=== PATIENT | female | born 1950 | race Caucasian/White ===

== ENCOUNTER 2017-10-16 12:53 | Inpatient (IN) | payer OTHER ==
[~2017-10-16] VITALS: Ht 160 cm; Wt 67.1 kg
--- NOTE | 2017-10-16 13:15 | ED GENERAL ADULT ---
History of Present Illness General Chief Complaint: Dyspnea (COPD, CHF, Other) Stated Complaint: SOB Vital Signs & Intake/Output Vital Signs & Intake/Output Vital Signs Date Time Temp Pulse Resp B/P B/P Pulse O2 O2 Flow FiO2 Mean Ox Delivery Rate 10/16 1258 98.7 84 20 124/78 92 Room Air Allergies Coded Allergies: No Known Allergies (10/16/17) Triage Note: PT TO ED C/O CHEST COLD SINCE FRIDAY. STATES PRODUCTIVE COUGH AND SOB. RA SATS 92%. NO OBVIOUS RESP DISTRESS NOTED. DENIES C/P. TO EKG [place]. Past History Travel History Traveled to [place] past 21 day No Medical History Cardiovascular: hyperlipidemia Endocrine: hypothyroidism Psychosocial History What is your primary language Beninese Tobacco Use: Current Daily Use Daily Tobacco Use Amount/Type: => 5 Cigarettes daily ETOH Use: denies use Illicit Drug Use: denies illicit drug use Progress Plan of Care: Orders Procedure Date/time Status EKG 10/16 1258 Active Departure Departure Condition: Stable Referrals: Candelaria ANGELES,Raghavendra Tang III (PCP/Family) Departure Forms: Customer Survey General Discharge Information
--- NOTE | 2017-10-16 13:20 | ED DYSPNEA/ASTHMA COMPLAINT ---
History of Present Illness General Chief Complaint: Dyspnea (COPD, CHF, Other) Stated Complaint: SOB Source: patient, family Exam Limitations: no limitations Vital Signs & Intake/Output Vital Signs & Intake/Output Vital Signs Date Time Temp Pulse Resp B/P B/P Pulse O2 O2 Flow FiO2 Mean Ox Delivery Rate 10/16 1339 92 10/16 1258 98.7 84 20 124/78 92 Room Air Allergies Coded Allergies: No Known Allergies (10/16/17) Reconcile Medications Atorvastatin Calcium 20 MG TABLET 1 TAB PO DAILY CHOLESTEROL (Reported) Hydrocodone/Acetaminophen (Hydrocodon-Acetaminoph 7.5-325) 7.5 MG-325 MG TABLET 1 TAB PO 4XDP PAIN (Reported) Levothyroxine Sodium 100 MCG TABLET 1 TAB PO DAILY AC THYROID (Reported) Mirtazapine 15 MG TABLET 1 TAB PO QPM SLEEP (Reported) Triage Note: PT TO ED C/O CHEST COLD SINCE FRIDAY. STATES PRODUCTIVE COUGH AND SOB. RA SATS 92%. NO OBVIOUS RESP DISTRESS NOTED. DENIES C/P. TO EKG [place]. Triage Nurses Notes Reviewed? yes HPI: Patient presents to the emergency department with increasing shortness of breath , dyspnea on exertion and a nonproductive cough. Patient states that on Friday she had chest tightness but has not had any since then. Patient is a heavy smoker but she states that she has been really decreasing the amount of cigarettes that she has been taking since Friday. There are no fevers but positive chills. Positive anorexia. No nausea or vomiting. Patient denies any orthopnea. Her daughter became concerned because it sounded like at times last night she stopped breathing during the night. 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 Past History Travel History Traveled to [place] past 21 day No Medical History Any Pertinent Medical History? see below for history Cardiovascular: hyperlipidemia Endocrine: hypothyroidism Surgical History Surgical History: non-contributory Psychosocial History What is your primary language Armenian Tobacco Use: Current Daily Use Daily Tobacco Use Amount/Type: => 5 Cigarettes daily ETOH Use: denies use Illicit Drug Use: denies illicit drug use Family History Hx Contributory? No Review of Systems Review of Systems Constitutional: Reports: no symptoms. EENTM: Reports: no symptoms. Respiratory: Reports: see HPI, cough, short of breath, wheezing. Cardiovascular: Reports: see HPI, chest pain. GI: Reports: no symptoms. Genitourinary: Reports: no symptoms. Musculoskeletal: Reports: no symptoms. Skin: Reports: no symptoms. Neurological/Psychological: Reports: no symptoms. Hematologic/Endocrine: Reports: no symptoms. Immunologic/Allergic: Reports: no symptoms. All Other Systems: Reviewed and Negative Physical Exam Physical Exam General Appearance: well developed/nourished, alert, awake, mild distress Head: atraumatic, normal appearance Eyes: Bilateral: PERRL, EOMI. Ears, Nose, Throat: normal pharynx, normal ENT inspection, hearing grossly normal Neck: normal inspection, supple, full range of motion Respiratory: decreased breath sounds, respiratory distress Cardiovascular: regular rate/rhythm, normal peripheral pulses Gastrointestinal: normal bowel sounds, soft, non-tender, no organomegaly Extremities: normal inspection, normal capillary refill, normal range of motion, no edema Neurologic/Psych: no motor/sensory deficits, awake, alert, oriented x 3, normal gait, normal mood/affect Skin: intact, normal color, warm/dry Lymphatic: no anterior cervical brian Core Measures ACS in differential dx? Yes CVA/TIA Diagnosis No Sepsis Present: No Sepsis Focused Exam Completed? No Progress Differential Diagnosis: asthma, AMI, bronchitis, CHF, COPD, pulmonary embolism, pneumonia, pneumothorax Plan of Care: Orders Procedure Date/time Status Heart Healthy Diet 10/16 D Active ED Holding Orders 10/16 1511 Active Admit to inpatient 10/16 1511 Active Vital Signs 10/16 1511 Active Code Status 10/16 1511 Active BLOOD CULTURE 10/16 1450 Active Telemetry/Supervisor Sandblaster 10/16 1321 Active URINALYSIS 10/16 1321 Active TROPONIN LEVEL 10/16 1321 Complete PARTIAL THROMBOPLASTIN TIME 10/16 1321 Complete PROTHROMBIN TIME 10/16 1321 Complete D-DIMER 10/16 1321 Complete COMPREHENSIVE METABOLIC PANEL 10/16 1321 Complete CBC WITHOUT DIFFERENTIAL 10/16 1321 Complete EKG 10/16 1258 Active Current Medications Sig/Rosaura Start time Last Medication Dose Stop Time Status Admin Azithromycin 500 MG ONCE ONE 10/16 1445 AC 10/16 (Zithromax) 10/16 1544 1507 Dextrose/Water 250 ML (D5W) Laboratory Tests 10/16/17 1335: Anion Gap 15, Estimated GFR 56 L, BUN/Creatinine Ratio 15.0, Glucose 136 H, Calcium 9.9, Total Bilirubin 0.6, AST 27, ALT 30, Alkaline Phosphatase 137 H, Troponin I < 0.01, Total Protein 7.1, Albumin 3.7, Globulin 3.4, Albumin/ Globulin Ratio 1.1, PT 12.5, INR 1.15, APTT 30, D-Dimer High Sensitivty 238, CBC w Diff NO MAN DIFF REQ, RBC 4.27, MCV 91.7, MCH 30.4, MCHC 33.1, RDW 13.5, MPV 7.3 L, Gran % 64.9, Lymphocytes % 23.6, Monocytes % 10.8 H, Eosinophils % 0.5, Basophils % 0.2, Absolute Granulocytes 7.5 H, Absolute Lymphocytes 2.7, Absolute Monocytes 1.3 H, Absolute Eosinophils 0.1, Absolute Basophils 0 Microbiology 10/16 1500 BLOOD: Blood Culture - RECD 10/16 1450 BLOOD: Blood Culture - RECD Diagnostic Imaging: Viewed by Me: Radiology Read. Discussed w/RAD: Radiology Read. CXR Impression: PATIENT: KEVYN GARCIA PRESENT AGE: 66 PATIENT ACCOUNT NO: [id number] : 51 LOCATION: [facility] ORDERING PHYSICIAN: Usman Romero MD SERVICE DATE: 10/16/17-1320 EXAM TYPE: RAD - XRY- PORTABLE CHEST XRAY EXAMINATION: XR PORTABLE CHEST CLINICAL INFORMATION: Shortness of breath. COMPARISON: None TECHNIQUE: Portable frontal view of the chest was obtained. FINDINGS: The trachea is in normal anatomic position. The cardiac silhouette is normal in size. Calcification of the aorta. There are hazy bibasilar opacities. Aspiration cannot be excluded. No pneumothorax. No large pleural effusion. IMPRESSION: Bibasilar airspace opacities. Aspiration is not excluded. DICTATED BY: Bhupendra Tinsley MD DATE/TIME DICTATED:10/16/171422 PHARMACY INTAKE TECHNICIAN:SWATI DATE/TIME TRANSCRIBED:10/16/171422 CONFIDENTIAL, DO NOT COPY WITHOUT APPROPRIATE AUTHORIZATION. <Electronically signed in Other Vendor System> SIGNED BY: Bhupendra Tinsley MD 10/16/17 1724 Initial ED EKG: SR WITH DIFFUSE ST DEPRESSIONS Rhythm Strip: normal sinus rhythm Comments: D/W DR. BUTLER. HE WILL CONSULT Departure Departure Disposition: HOME OR SELF CARE Condition: Stable Clinical Impression Primary Impression: Pneumonia Secondary Impressions: Abnormal EKG Referrals: Raghavendra Gaona MD, III (PCP/Family) Departure Forms: Customer Survey General Discharge Information Admission Note Spoke With: Jaylen ANGELES,Ashley Documentation of Exam: Documentation of any treatments & extenuating circumstances including Concerns Regarding Discharge (functional status, medication knowledge or non-compliance, living conditions, etc.) that warrant an admission rather than observation: [IV ABX, RESP TREATMENT, CARDIOLOGY CONSULT, TELE MONITORING, SERIAL ENZYMES] Critical Care Note Critical Care Note Critical Care Time: mins: (90 MIN)
[2017-10-16] MEDS ORDERED: MIRTAZAPINE15 M2 PO (13:27)
[2017-10-16] MEDS ORDERED: ATORVASTATIN CA20 M1 PO (13:27)
[2017-10-16] MEDS ORDERED: LEVOTHYROXINE100 MC1 PO (13:27)
[2017-10-16] MEDS ORDERED: HYDROCODON-ACE1 EAC3 PO (13:29)
[2017-10-16 13:49] LABS: ABSOLUTE BASOPHIL COUNT 0 /CUMM (0.0-0.2); ABSOLUTE EOSINOPHIL COUNT 0.1 /CUMM (0.0-0.7); ABSOLUTE GRANULOCYTE CT 7.5 /CUMM (1.4-6.5); ABSOLUTE LYMPH COUNT 2.7 /CUMM (1.2-3.4); ABSOLUTE MONOCYTE COUNT 1.3 /CUMM (0.10-0.60); BASOPHIL % 0.2 % (0.0-2.0); EOSINOPHIL % 0.5 % (0-5); GRANULOCYTE % 64.9 % (42.2-75.2); HEMATOCRIT 39.1 % (37-47); MEAN CORPUSCULAR HGB 30.4 PG (27.0-31.0); MEAN CORPUSCULAR HGB CONC 33.1 G/DL (33.0-37.0); MEAN CORPUSCULAR VOLUME 91.7 FL (81.0-99.0); MEAN PLATELET VOLUME 7.3 FL (7.4-10.4); PLATELET COUNT 357 /CUMM (130-400); RBC DISTRIBUTION WIDTH 13.5 % (11.5-14.5); RED BLOOD CELL CT 4.27 /CUMM (4.20-5.40); WHITE BLOOD CELL COUNT 11.6 /CUMM (4.8-10.8)
[2017-10-16 13:57] LABS: PT 12.5 SEC (9.4-12.5); PTT 30 SEC (25-37)
--- NOTE | 2017-10-16 14:28 | RADIOLOGY REPORT ---
EXAMINATION: XR PORTABLE CHEST CLINICAL INFORMATION: Shortness of breath. COMPARISON: None TECHNIQUE: Portable frontal view of the chest was obtained. FINDINGS: The trachea is in normal anatomic position. The cardiac silhouette is normal in size. Calcification of the aorta. There are hazy bibasilar opacities. Aspiration cannot be excluded. No pneumothorax. No large pleural effusion. IMPRESSION: Bibasilar airspace opacities. Aspiration is not excluded.
--- NOTE | 2017-10-16 15:41 | History & Physical ---
Toma Muniz 10/16/17 1541: General Information and HPI MD Statement: I have seen and personally examined KEVYN GARCIA and documented this H&P. The patient is a 66 year old F who presented with a patient stated chief complaint of [Chest pain]. Source of Information: patient, old records Exam Limitations: no limitations History of Present Illness: Ms. Garcia is a 66-year-old female with PMH of dyslipidemia, hypothyroidism, anxiety on rameron, degenerative disc disease w/ pinched nerve on vicodin, presented to ER with chief complaint of increasing shortness of breath especially during exertion, nonproductive cough, and one episode of chest tightness on Friday, with normal episodes ever since. Patient stated that she got a cold on Friday, was alternating feeling of hot/ cold, but she never got a temperature taken, and endorsed sore throat/ nonproductive cough. Patient had a hard time bringing up her sputum, and endorsed chest pain from coughing, however self resolved when not coughing. She said the chest pain was not reproducible during exertion, and no chest pain since Friday. Patient's daughter stated that patient walk to the bathroom is now prior to our interaction, and felt dizzy. At baseline patient could ambulate without assistance. Patient was seen by PCP Dr. Gaona in [place], and had never seen any other specialists. Patient had been active smoker for 40 years, was 1.5 ppd, however she had not been smoking since Friday due to the cough. Patient had a stress test 15 years ago, was grossly normal results other than "sticky valves". Daughter stated that patient had been tired for years, and had been coughing at nighttime, however she was getting used to it. Patient denied leg swelling. Patient stated that she was sleeping with head elevated for decades however just for the convenience of watching TV. She had no past echo. Allergies/Medications Allergies: Coded Allergies: No Known Allergies (10/16/17) Home Med list Atorvastatin Calcium 20 MG TABLET 1 TAB PO DAILY CHOLESTEROL (Reported) Hydrocodone/Acetaminophen (Hydrocodon-Acetaminoph 7.5-325) 7.5 MG-325 MG TABLET 1 TAB PO 4XDP PAIN (Reported) Levothyroxine Sodium 100 MCG TABLET 1 TAB PO DAILY AC THYROID (Reported) Mirtazapine 15 MG TABLET 1 TAB PO QPM SLEEP (Reported) Past History Travel History Traveled to [place] past 21 day No Medical History Cardiovascular: hyperlipidemia Musculoskeletal: Degenerative Disc Disease w/ Nerve impingement. Psychiatric: anxiety Endocrine: hypothyroidism Surgical History Surgical History: non-contributory Past Family/Social History Psychosocial History Smoking Status: Current Everyday Smoker (>5cig daily) ETOH Use: denies use Illicit Drug Use: denies illicit drug use Review of Systems Review of Systems Constitutional: Reports: see HPI. Exam & Diagnostic Data Last 24 Hrs of Vital Signs/I&O Vital Signs Date Time Temp Pulse Resp B/P B/P Pulse O2 O2 Flow FiO2 Mean Ox Delivery Rate 10/16 1339 92 10/16 1258 98.7 84 20 124/78 92 Room Air Intake & Output 10/16 1600 10/16 0800 10/16 0000 Intake Total 0 Output Total Balance 0 Intake, Oral 0 Patient 61.235 kg Weight Weight Estimated Measurement Method Physical Exam General Appearance Alert, Oriented X3, Cooperative, No Acute Distress Skin No Rashes, No Breakdown, No Significant Lesion Skin Temp/Moisture Exam: Warm/Dry Sepsis Skin Exam (color): Normal for Ethnicity HEENT Atraumatic, PERRLA Neck Supple, No JVD Cardiovascular Regular Rate Lungs very mild expiratory wheezing in mid lung, s/p TRC/Nebulizer Abdomen Soft, No Tenderness, No Hepatospenomegaly Neurological Normal Speech, Strength at 5/5 X4 Ext Extremities No Edema, Normal Pulses, No Tenderness/Swelling Last 24 Hrs of Labs/Jesus Alberto: Laboratory Tests 10/16/17 1335: Anion Gap 15, Estimated GFR 56 L, BUN/Creatinine Ratio 15.0, Glucose 136 H, Calcium 9.9, Total Bilirubin 0.6, AST 27, ALT 30, Alkaline Phosphatase 137 H, Troponin I < 0.01, Total Protein 7.1, Albumin 3.7, Globulin 3.4, Albumin/ Globulin Ratio 1.1, PT 12.5, INR 1.15, APTT 30, D-Dimer High Sensitivty 238, CBC w Diff NO MAN DIFF REQ, RBC 4.27, MCV 91.7, MCH 30.4, MCHC 33.1, RDW 13.5, MPV 7.3 L, Gran % 64.9, Lymphocytes % 23.6, Monocytes % 10.8 H, Eosinophils % 0.5, Basophils % 0.2, Absolute Granulocytes 7.5 H, Absolute Lymphocytes 2.7, Absolute Monocytes 1.3 H, Absolute Eosinophils 0.1, Absolute Basophils 0 Microbiology 10/16 1500 BLOOD: Blood Culture - RECD 10/16 1450 BLOOD: Blood Culture - RECD Assessment/Plan Assessment: Ms. Garcia is a 66-year-old female with PMH of dyslipidemia, hypothyroidism, anxiety on rameron, degenerative disc disease w/ pinched nerve on vicodin, presented to ER with chief complaint of increasing shortness of breath especially during exertion, nonproductive cough, and one episode of chest tightness on Friday, with normal episodes ever since. Patient stated that she got a cold on Friday, was alternating feeling of hot/ cold, but she never got a temperature taken, and endorsed sore throat/ nonproductive cough. Patient had a hard time bringing up her sputum, and endorsed chest pain from coughing, however self resolved when not coughing. She said the chest pain was not reproducible during exertion, and no chest pain since Friday. Patient's daughter stated that patient walk to the bathroom is now prior to our interaction, and felt dizzy. At baseline patient could ambulate without assistance. On admission, Vitals: Stable saturating 92% on room air -CBC: WBC 9.6, H/H 15.0/39.1, PLT 357, -BMP: K3.3, CR 1.0, alk phos 137, -Misc: -CXR: Bibasilar airspace opacities. Aspiration is not excluded. -EKG: Sinus rhythm with diffuse ST depressions. Dr. Guerrero where it, with consult. -Interventions in ER: Ceftriaxone/azithromycin 1, Atrovent/Proventil Assessment: Patient's clinical picture with chest discomfort associated with coughing, however self resolving, may represented more of musculoskeletal chest pain, however pneumonia cannot be ruled out as well based on her chest x-ray. However , cardiac workup would still be needed to rule out any possible acute coronary syndrome/CHF, etc. Problem list #COPD #ACS pending rule out #Hypokalemia Plan - Admit to telemetry for continuous monitoring anticoagulation DVT prophylaxis Heparin + ALPS Heart healthy Diet Full Code As Ranked By This Provider Problem List: 1. Abnormal EKG 2. Hyperlipidemia Core Measures/Misc (04/06) Acute Coronary Syndrome ACS Diagnosis: No Congestive Heart Failure Congestive Heart Failure Diagnosis No Cerebrovascular Accident CVA/TIA Diagnosis: No VTE (View Protocol) VTE Risk Factors Age>40 No Mechanical VTE Prophylaxis d/t N/A MechProphylax Ordered No VTE Pharm Prophylaxis d/t NA PharmProphylax ordered Sepsis (View protocol) Sepsis Present: No Ashley York MD 10/16/17 1808: Attending MD Review Statement Attending Statement Attending MD Statement: examined this patient, discuss w/resident/PA/[facility], agreed w/resident/PA/[facility], discussed with family, reviewed EMR data (avail), reviewed images, amended to note Attending Assessment/Plan: 66-year-old female with past medical history significant for dyslipidemia, hypothyroidism, anxiety on rameron, degenerative disc disease presented to the emergency room with shortness of breath, coughing, wheezing and some chest discomfort that she experienced 4 days ago. Patient is a chronic smoker. She sick with cough, chest congestion and cold, sore throat symptoms since last 5 days. She denies any sputum production. She does complain of feeling short of breath. She claims that she use the lowest sleepy but that habit. She denies any exertional chest pain. That chest discomfort mainly occurred with the cough and it was mainly in the center of the chest as well as back. She denies checking her temperature but has felt chills. She has not taken any medications. In the emergency room she was wheezy and her chest x-ray showed bibasilar opacities. She had abnormal EKG also. She is a chronic smoker but has never been diagnosed with COPD before. Vital Signs Date Time Temp Pulse Resp B/P B/P Pulse O2 O2 Flow FiO2 Mean Ox Delivery Rate 10/16 1757 74 18 133/64 93 Room Air 10/16 1500 98.6 80 18 124/66 93 Room Air 10/16 1339 92 10/16 1258 98.7 84 20 124/78 92 Room Air on exam; aox3, nad. cv; s1,s2, rrr resp; b/l exp wheeze and junky bs. abd; soft, nt, bs+ ext; no edema Laboratory Tests 10/16 10/16 1625 1335 Chemistry Sodium (137 - 145 mmol/L) 141 Potassium (3.5 - 5.1 mmol/L) 3.3 L Chloride (98 - 107 mmol/L) 102 Carbon Dioxide (22 - 30 mmol/L) 25 Anion Gap (5 - 16) 15 BUN (7 - 17 mg/dL) 15 Creatinine (0.5 - 1.0 mg/dL) 1.0 Estimated GFR (>60 ml/min) 56 L BUN/Creatinine Ratio (7 - 25 %) 15.0 Glucose (65 - 99 mg/dL) 136 H Calcium (8.4 - 10.2 mg/dL) 9.9 Total Bilirubin (0.2 - 1.3 mg/dL) 0.6 AST (14 - 36 U/L) 27 ALT (9 - 52 U/L) 30 Alkaline Phosphatase (<127 U/L) 137 H Troponin I (< 0.11 ng/ml) < 0.01 Total Protein (6.3 - 8.2 g/dL) 7.1 Albumin (3.5 - 5.0 g/dL) 3.7 Globulin (1.9 - 4.2 gm/dL) 3.4 Albumin/Globulin Ratio (1.1 - 2.2 %) 1.1 Coagulation PT (9.4 - 12.5 SEC) 12.5 INR (0.90 - 1.19) 1.15 APTT (25 - 37 SEC) 30 D-Dimer High Sensitivty (0 - 243 ng/ml) 238 Hematology CBC w Diff NO MAN DIFF REQ WBC (4.8 - 10.8 /CUMM) 11.6 H RBC (4.20 - 5.40 /CUMM) 4.27 Hgb (12.0 - 16.0 G/DL) 13.0 Hct (37 - 47 %) 39.1 MCV (81.0 - 99.0 FL) 91.7 MCH (27.0 - 31.0 PG) 30.4 MCHC (33.0 - 37.0 G/DL) 33.1 RDW (11.5 - 14.5 %) 13.5 Plt Count (130 - 400 /CUMM) 357 MPV (7.4 - 10.4 FL) 7.3 L Gran % (42.2 - 75.2 %) 64.9 Lymphocytes % (20.5 - 51.1 %) 23.6 Monocytes % (1.7 - 9.3 %) 10.8 H Eosinophils % (0 - 5 %) 0.5 Basophils % (0.0 - 2.0 %) 0.2 Absolute Granulocytes (1.4 - 6.5 /CUMM) 7.5 H Absolute Lymphocytes (1.2 - 3.4 /CUMM) 2.7 Absolute Monocytes (0.10 - 0.60 /CUMM) 1.3 H Absolute Eosinophils (0.0 - 0.7 /CUMM) 0.1 Absolute Basophils (0.0 - 0.2 /CUMM) 0 Urines Urine Color (YEL,AMB,STR) YEL Urine Clarity (CLEAR) CLEAR Urine pH (5.0 - 8.0) 6.0 Ur Specific [place] (1.001 - 1.035) 1.015 Urine Protein (NEG,<30 MG/DL) TRACE H Urine Ketones (NEG) NEG Urine Nitrite (NEG) NEG Urine Bilirubin (NEG) NEG Urine Urobilinogen (0.1 - 1.0 EU/dl) 0.2 Ur Leukocyte Esterase (NEG) NEG Ur Microscopic SEDIMENT EXAMINED Urine RBC (0 - 5 /HPF) 1-3 Urine WBC (0 - 2 /HPF) RARE Ur Epithelial Cells (NONE,FEW) FEW Urine Bacteria (NEG/NONE) RARE H Urine Mucus (FEW,NONE) RARE Urine Hemoglobin (NEG) SMALL H Urine Glucose (N MG/DL) NEG EKG: NSr with some ST depresions in multiple leads. CXR: Bibasilar airspace opacities. A/P; 66-year-old female with past medical history significant for dyslipidemia, hypothyroidism, anxiety on rameron, degenerative disc disease is admitted with shortness of breath, acute bronchitis, some chest discomfort 5 days ago and abnormal EKG. Patient admitted to telemetry. Troponins will be trended. Serial EKGs will be obtained. Appreciate cardiology input. She will be continued on aspirin. Please obtain echocardiogram. If her troponins become positive, please call cardiology for further recommendations. At this point Dr. Guerrero recommends no anticoagulation. She should be treated with IV steroids, TRC nebs and antibiotics . Please obtain sputum culture. Please send urine Legionella and strep antigen. Please also obtain a flu swab. Please continue statin and other home meds. Pharmacologic DVT prophylaxis. Patient is a full code. Discussed with daughter at bedside. Monalisa Rodriguez 10/16/17 1850: Resident Review Statement Resident Statement: examined this patient, discussed with dental intern, agreed with dental intern, reviewed images, amended to note Other Findings: Mr Garcia is a 66 year old man w/ a PMHx of hyperlipidemia, 40 pk year smoking history, hypothyroidism came to the hospital with a chief concern of acute onset of dyspnea, productive cough, subjective fever, sore throat that started approximately 4 days ago. She was known to be in her usual state of health until 4 days ago, when she started developing worsening cough productive cough, associated with chest tightness only with paroxysms of cough. Reported chronic cough secondary to smoking, for many years. Also developed worsening dyspnea in the last 2 days, who appeared to be dyspneic on minimal exertion. No exertional chest pain reported. When she was in the ED, she reported an episode of dizziness upon ambulation. No palpitations, lightheadednes in the past, weight loss or weight gain, pedal edema, loss of appetite was noted. Reported occasional wheezing in the last few days. Has not seen any ticket collector for any pulmonary function tests. Reported stress test 17 years ago, when she had abnormal EKG changes. Has not seen any nursing director or followed up with further workup. Family history significant for coronary artery disease in father at 57. Works at a [employer], and reports a busy lifestyle. Active at baseline. At the time of [id number] 98.7, pulse rate 84, respiration 20, blood pressure 124/78, pulse ox 92% on room air. General Exam: AAOx3, mild distress, Skin: No rashes, no breakdown HEENT: PERRLA, EOMI Neck: Supple, No JVD No cervical lymphadenopathy CVS: Reg Rate, Normal S1,S2, No MGR Resp: Decreased air entry bilaterally, rhonchi and rales + bilaterally. Abdomen: Soft, No tenderness, Normal Bowel Sounds Neuro: Normal Speech, Strength 5/5 b/l x 4 extremities, Sensation intact, CN III -XII NL, Reflexes 2+ Extremities: No cyanosis, pedal edema Pertinent lab findings: W BC 11.6, hemoglobin 13.0,Pertinent lab findings: WBC 11.6, hemoglobin 13.0, hematocrit 39.1, platelets 357, sodium 141, potassium 3.3 , bicarb 25, glucose 136, AST 27, ALT 30, alkaline phosphatase 137, troponin I 0.01 d-dimer 238. EKG reveals normal sinus rhythm, normal axis, HI 152, T-wave inversions in V2-V3 , flattened T waves V4-V6. [address] segment depressions in lead 2, V3, V4, V5. Could be nonspecific repolarization abnormalities given the nature of diffuse changes in all leads. Chest x-ray revealed bibasilar airspace opacities. Etiology in this case for airflow obstruction is likely secondary to emphysema/ chronic bronchitis. But no PFTs were done in the past. Radiologically, it does appear that she may have had COPD for a long time. mMRC dyspnea scale 1, but cant calculate her GOLD status given lack of data. Etiology for acute exacerbation is likely viral infection/bacterial infection w/ Haemophilus, Moraxella, Streptococcus. Differential diagnosis considered at the time of admission pneumonia, restrictive lung disease or acute coronary syndrome. Problem list: #1 COPD #2 EKG changes #3 hypothyroidism #4 history of depression Plan: -Advised the patient to telemetry given EKG changes. -CBC to monitor for infection. -Lower respiratory cultures, Strep pneumo and legionella ag testing. -supplemental oxygen as needed. -Maintain oxygen saturation in between 90 to 92% -monitor for CO2 narcosis, monitor for AMS, clinical tiring -Bronchodilator therapy with albuterol and ipratropium -Start iv predniosne 40 Q8 -Consider starting antibiotics, if the pt has fever or increased sputum production or worsening dyspnea -Smoking cessation counseling, vaccination status, avoid triggers -Continue Synthroid -Continue Remeron 15mg daily. -Aspirin has been administered in the ED. Daily aspirin. -If the pt has any chest pain or elevated trops call Cardiology. No IV heparin at this time. Housekeeping: #1 DVT prophylaxis-heparin subcutaneous #2 pain management-vicodin as per the pt. #3 full code.
--- NOTE | 2017-10-16 16:49 | Cons- Cardiology ---
General Information and HPI Consulting Request Date of Consult: 10/16/17 Requested By: Ashley York MD Reason for Consult: Abnormal EKG in a patient presenting with respiratory symptoms. Source of Information: patient, old records Exam Limitations: no limitations History of Present Illness: Fariba Garcia is a 66-year-old female who presents with difficulty breathing for about 4 days. She's had cough and sputum production. She's not had any chest pain. She has no known heart disease, however she in the past she was told of an abnormal EKG and had a stress test, but this was well over 10 years ago according to her. She's not had an EKG since then to her recollection. She does have dyslipidemia and is on Lipitor, but she does not have hypertension or diabetes. She has chronic dyspnea but denies exertional chest pain. She is a smoker. Allergies/Medications Allergies: Coded Allergies: No Known Allergies (10/16/17) Home Med List: Atorvastatin Calcium 20 MG TABLET 1 TAB PO DAILY CHOLESTEROL (Reported) Hydrocodone/Acetaminophen (Hydrocodon-Acetaminoph 7.5-325) 7.5 MG-325 MG TABLET 1 TAB PO 4XDP PAIN (Reported) Levothyroxine Sodium 100 MCG TABLET 1 TAB PO DAILY AC THYROID (Reported) Mirtazapine 15 MG TABLET 1 TAB PO QPM SLEEP (Reported) Current Medications: Current Medications Sig/Rosaura Start time Last Medication Dose Route Stop Time Status Admin Albuterol Sulfate 3 ML ONCE ONE 10/16 1330 DC 10/16 INH 10/16 1331 1339 Azithromycin 500 MG ONCE ONE 10/16 1445 DC 10/16 Dextrose/Water 250 ML IV 10/16 1544 1507 Ceftriaxone Sodium 0 .STK-MED ONE 10/16 1503 DC .ROUTE Ceftriaxone Sodium 1,000 MG ONCE ONE 10/16 1445 DC 10/16 IV 10/16 1446 1507 Ipratropium [place] 2.5 ML ONCE ONE 10/16 1330 DC 10/16 INH 10/16 1331 1339 Review of Systems Review of Systems: She has no other complaints in the review of systems Past History Travel History Traveled to [place] past 21 day No Medical History Cardiovascular: hyperlipidemia Endocrine: hypothyroidism Surgical History Surgical History: non-contributory Psychosocial History Smoking Status: Current Everyday Smoker (>5cig daily) ETOH Use: denies use Illicit Drug Use: denies illicit drug use Exam & Diagnostic Data Vital Signs and I&O Vital Signs Date Time Temp Pulse Resp B/P B/P Pulse O2 O2 Flow FiO2 Mean Ox Delivery Rate 10/16 1500 98.6 80 18 124/66 93 Room Air 10/16 1339 92 10/16 1258 98.7 84 20 124/78 92 Room Air Intake & Output 10/16 1600 10/16 0800 10/16 0000 10/15 1600 10/15 0800 10/15 0000 Intake Total 0 Output Total Balance 0 Intake, Oral 0 Patient 135 lb Weight Weight Estimated Measurement Method Physical Exam: This is a well-developed well-nourished middle-aged female in no acute distress HEENT exam is normal Neck veins not distended Carotids normal Chest: decreased breath sounds, mild wheezing, scattered rhonchi and coarse rales. Heart regular rhythm no murmurs, gallops or rubs Extremities good pulses, no edema Labs/Jesus Alberto Results: Laboratory Tests 10/16 10/16 1625 1335 Chemistry Sodium (137 - 145 mmol/L) 141 Potassium (3.5 - 5.1 mmol/L) 3.3 L Chloride (98 - 107 mmol/L) 102 Carbon Dioxide (22 - 30 mmol/L) 25 Anion Gap (5 - 16) 15 BUN (7 - 17 mg/dL) 15 Creatinine (0.5 - 1.0 mg/dL) 1.0 Estimated GFR (>60 ml/min) 56 L BUN/Creatinine Ratio (7 - 25 %) 15.0 Glucose (65 - 99 mg/dL) 136 H Calcium (8.4 - 10.2 mg/dL) 9.9 Total Bilirubin (0.2 - 1.3 mg/dL) 0.6 AST (14 - 36 U/L) 27 ALT (9 - 52 U/L) 30 Alkaline Phosphatase (<127 U/L) 137 H Troponin I (< 0.11 ng/ml) < 0.01 Total Protein (6.3 - 8.2 g/dL) 7.1 Albumin (3.5 - 5.0 g/dL) 3.7 Globulin (1.9 - 4.2 gm/dL) 3.4 Albumin/Globulin Ratio (1.1 - 2.2 %) 1.1 Coagulation PT (9.4 - 12.5 SEC) 12.5 INR (0.90 - 1.19) 1.15 APTT (25 - 37 SEC) 30 D-Dimer High Sensitivty (0 - 243 ng/ml) 238 Hematology CBC w Diff NO MAN DIFF REQ WBC (4.8 - 10.8 /CUMM) 11.6 H RBC (4.20 - 5.40 /CUMM) 4.27 Hgb (12.0 - 16.0 G/DL) 13.0 Hct (37 - 47 %) 39.1 MCV (81.0 - 99.0 FL) 91.7 MCH (27.0 - 31.0 PG) 30.4 MCHC (33.0 - 37.0 G/DL) 33.1 RDW (11.5 - 14.5 %) 13.5 Plt Count (130 - 400 /CUMM) 357 MPV (7.4 - 10.4 FL) 7.3 L Gran % (42.2 - 75.2 %) 64.9 Lymphocytes % (20.5 - 51.1 %) 23.6 Monocytes % (1.7 - 9.3 %) 10.8 H Eosinophils % (0 - 5 %) 0.5 Basophils % (0.0 - 2.0 %) 0.2 Absolute Granulocytes (1.4 - 6.5 /CUMM) 7.5 H Absolute Lymphocytes (1.2 - 3.4 /CUMM) 2.7 Absolute Monocytes (0.10 - 0.60 /CUMM) 1.3 H Absolute Eosinophils (0.0 - 0.7 /CUMM) 0.1 Absolute Basophils (0.0 - 0.2 /CUMM) 0 Urines Urine Color (YEL,AMB,STR) Pending Urine Clarity (CLEAR) Pending Urine pH (5.0 - 8.0) Pending Ur Specific [place] (1.001 - 1.035) Pending Urine Protein (NEG,<30 MG/DL) Pending Urine Ketones (NEG) Pending Urine Nitrite (NEG) Pending Urine Bilirubin (NEG) Pending Urine Urobilinogen (0.1 - 1.0 EU/dl) Pending Ur Leukocyte Esterase (NEG) Pending Ur Microscopic SEDIMENT EXAMINED Urine RBC (0 - 5 /HPF) Pending Urine Hemoglobin (NEG) Pending Urine Glucose (N MG/DL) Pending Diagnostic Data EKG Results EKG shows sinus rhythm at a rate of 66. Diffuse ST-T wave abnormalities consistent with myocardial ischemia in multiple leads. There are no old EKGs for comparison. CXR Results PATIENT: FARIBA GARCIA PRESENT AGE: 66 PATIENT ACCOUNT NO: [id number] : 51 LOCATION: [facility] ORDERING PHYSICIAN: Usman Romero MD SERVICE DATE: 10/16/171321 EXAM TYPE: RAD - XRY-PORTABLE CHEST XRAY EXAMINATION: XR PORTABLE CHEST CLINICAL INFORMATION: Shortness of breath. COMPARISON: None TECHNIQUE: Portable frontal view of the chest was obtained. FINDINGS: The trachea is in normal anatomic position. The cardiac silhouette is normal in size. Calcification of the aorta. There are hazy bibasilar opacities. Aspiration cannot be excluded. No pneumothorax. No large pleural effusion. IMPRESSION: Bibasilar airspace opacities. Aspiration is not excluded. DICTATED BY: Bhupendra Tinsley MD DATE/TIME DICTATED:10/16/171422 FIXTURE FABRICATOR REPAIRER:SWATI DATE/TIME TRANSCRIBED:10/16/171422 CONFIDENTIAL, DO NOT COPY WITHOUT APPROPRIATE AUTHORIZATION. <Electronically signed in Other Vendor System> SIGNED BY: Bhupendra Tinsley MD 10/16/171427 Assessment/Plan Assessment/Plan Fariba Garcia is a 66-year-old female who presents with a bronchitic type picture. She has a nonspecifically abnormal EKG with diffuse ST-T wave abnormalities. There are no old EKGs to compare. She's not having any cardiac symptoms at this time. Her initial troponin is negative. Her chest x-ray does not show any evidence of congestive heart failure. She's she does have risk factors of the smoking and dyslipidemia although she is taking a statin. I recommend serial EKGs and enzymes and an echocardiogram for initial workup. Should these come out negative then any further workup that needs to be done can be done as an outpatient after she recovers from her acute respiratory illness. Aspirin has been given and should be continued. I don't think she needs anticoagulation or any other specific cardiac treatment at this time Consult Acknowledgment - Thank you for your consult request.
[2017-10-16 22:00] VITALS: BP 142/80
[2017-10-17 06:00] VITALS: BP 148/88
--- NOTE | 2017-10-17 07:54 | PN- Housestaff ---
Toma Muniz 10/17/17 0754: Subjective Follow-up For: #COPD #EKG changes #hypothyroidism #history of depression Tele-Events Since Last Visit: NSR 60-80s Subjective: No overnighte event. Patient felt improved after respiratory treatment. acknowledged that her EKG still had similar ST depression change however she stated that was similar to her previous abnormal EKG 17 years ago when she underwent a stress test and nothing was found. Denied Chest pain/Ab pain/other specific complaint. Review of Systems Constitutional: Reports: see HPI. Objective Last 24 Hrs of Vital Signs/I&O Vital Signs Date Time Temp Pulse Resp B/P B/P Pulse O2 O2 Flow FiO2 Mean Ox Delivery Rate 10/17 0837 Nasal 2.0L Cannula 10/17 0600 99.0 93 22 148/88 87 Room Air 10/16 2200 99.2 77 22 142/80 10/16 2039 Room Air 10/16 1933 98.3 84 20 142/68 92 Room Air 10/16 1757 74 18 133/64 93 Room Air 10/16 1500 98.6 80 18 124/66 93 Room Air 10/16 1339 92 10/16 1258 98.7 84 20 124/78 92 Room Air Intake & Output 10/17 1600 10/17 0800 10/17 0000 Intake Total Output Total Balance Patient 64.665 kg Weight Weight Bed scale Measurement Method Physical Exam General Appearance: Alert, Oriented X3, Cooperative, No Acute Distress Cardiovascular: Regular Rate Lungs: Normal Air Movement Abdomen: Soft, No Tenderness Neurological: Normal Gait, Normal Speech, Strength at 5/5 X4 Ext Extremities: No Edema, Normal Pulses Current Medications: Current Medications Sig/Rosaura Start time Last Medication Dose Route Stop Time Status Admin Acetaminophen 650 MG Q8P PRN 10/16 2115 AC PO Albuterol Sulfate 3 ML BID 10/17 1000 AC 10/17 INH 0844 Albuterol Sulfate 3 ML Q4P PRN 10/16 1900 AC INH Albuterol Sulfate 3 ML ONCE ONE 10/16 1330 DC 10/16 INH 10/16 1331 1339 Aspirin 81 MG DAILY 10/17 1000 AC 10/17 PO 0926 Aspirin 0 .STK-MED ONE 10/16 1757 DC PO Aspirin 325 MG ONCE ONE 10/16 1730 DC 10/16 PO 10/16 1731 1757 Atorvastatin Calcium 20 MG 1700 10/16 1845 AC 10/16 PO 2212 Azithromycin 500 MG 1500 10/17 1500 AC Dextrose/Water 250 ML IV Azithromycin 500 MG ONCE ONE 10/16 1445 DC 10/16 Dextrose/Water 250 ML IV 10/16 1544 1507 Ceftriaxone Sodium 1,000 MG 1500 10/17 1500 CAN IV Ceftriaxone Sodium 0 .STK-MED ONE 10/16 1503 DC .ROUTE Ceftriaxone Sodium 1,000 MG ONCE ONE 10/16 1445 DC 10/16 IV 10/16 1446 1507 Guaifenesin 600 MG Q12 10/17 1000 AC 10/17 PO 0927 Heparin Sodium 5,000 UNIT Q8 10/16 2200 AC 10/17 (Porcine) SC 0535 Hydrocodone Bitart/ 1 TAB Q8P PRN 10/16 211 AC Acetaminophen PO Ipratropium [place] 2.5 ML BID 10/17 1000 AC 10/17 INH 0844 Ipratropium [place] 2.5 ML ONCE ONE 10/16 1330 DC 10/16 INH 10/16 1331 1339 Levothyroxine Sodium 0.1 MG DAILY AC 10/17 0700 AC 10/17 PO 0535 Methylprednisolone 40 MG Q8 10/17 0600 AC 10/17 IV 0535 Methylprednisolone 40 MG Q8 10/16 2200 DC IV Methylprednisolone 0 .STK-MED ONE 10/16 1919 DC .ROUTE Methylprednisolone 125 MG ONCE ONE 10/16 1830 DC 10/16 IV 10/16 1831 1933 Mirtazapine 15 MG QPM 10/16 2200 AC 10/16 PO 2333 Nicotine 14 MG ONE TIME ONE 10/17 0430 DC TOP 10/17 0431 Potassium Chloride 0 .STK-MED ONE 10/16 1757 DC PO Potassium Chloride 40 MEQ ONCE ONE 10/16 1730 DC 10/16 PO 10/16 1731 1757 Tramadol HCl 50 MG Q8P PRN 10/16 2115 AC 10/17 PO 0929 Last 24 Hrs of Lab/Jesus Alberto Results Last 24 Hrs of Labs/Mics: Laboratory Tests 10/17/17 06: Troponin I Cancelled 10/17/17 0630: Anion Gap 18 H, Estimated GFR > 60, BUN/Creatinine Ratio 17.1, Troponin I < 0.01, CBC w Diff MAN DIFF ORDERED, RBC 4.32, MCV 91.4, MCH 30.8, MCHC 33.7, RDW 13.6, MPV 7.7, Gran % 84.8 H, Lymphocytes % 12.5 L, Monocytes % 2.5, Eosinophils % 0, Basophils % 0.2, Absolute Granulocytes 8.8 H, Segmented Neutrophils 72, Band Neutrophils 13 H, Absolute Lymphocytes 1.3, Lymphocytes 10 L, Monocytes 2, Absolute Monocytes 0.3, Absolute Eosinophils 0, Absolute Basophils 0, Metamyelocytes 1, Myelocytes 2 H, Platelet Estimate ADEQUATE, Normocytic RBCs VERIFIED, Normochromic RBCs VERIFIED 10/16/172054: Troponin I < 0.01 10/16/171624: Urine Color YEL, Urine Clarity CLEAR, Urine pH 6.0, Ur Specific [place] 1.015, Urine Protein TRACE H, Urine Ketones NEG, Urine Nitrite NEG, Urine Bilirubin NEG, Urine Urobilinogen 0.2, Ur Leukocyte Esterase NEG, Ur Microscopic SEDIMENT EXAMINED, Urine RBC 1-3, Urine WBC RARE, Ur Epithelial Cells FEW, Urine Bacteria RARE H, Urine Mucus RARE, Urine Hemoglobin SMALL H, Urine Glucose NEG 10/16/17 1335: Anion Gap 15, Estimated GFR 56 L, BUN/Creatinine Ratio 15.0, Glucose 136 H, Calcium 9.9, Total Bilirubin 0.6, AST 27, ALT 30, Alkaline Phosphatase 137 H, Troponin I < 0.01, Total Protein 7.1, Albumin 3.7, Globulin 3.4, Albumin/ Globulin Ratio 1.1, PT 12.5, INR 1.15, APTT 30, D-Dimer High Sensitivty 238, CBC w Diff NO MAN DIFF REQ, RBC 4.27, MCV 91.7, MCH 30.4, MCHC 33.1, RDW 13.5, MPV 7.3 L, Gran % 64.9, Lymphocytes % 23.6, Monocytes % 10.8 H, Eosinophils % 0.5, Basophils % 0.2, Absolute Granulocytes 7.5 H, Absolute Lymphocytes 2.7, Absolute Monocytes 1.3 H, Absolute Eosinophils 0.1, Absolute Basophils 0 Microbiology 10/160 NASOPHARYN: Influenza Virus A & B Rapid Smear - COMP 10/16 172 LOWER RESP: Respiratory Culture - COLB 10/16 1722 LOWER RESP: Gram Stain - COLB 10/16 1624 URINE ROUT: Legionella Antigen - RECD 10/16 1624 URINE ROUT: Streptococcus pneumoniae Antigen (M - RECD 10/16 1500 BLOOD: Blood Culture - RECD 10/16 1450 BLOOD: Blood Culture - RECD Assessment/Plan Assessment: Ms. Lopez is a 66-year-old female with PMH of dyslipidemia, hypothyroidism, anxiety on rameron, degenerative disc disease w/ pinched nerve on vicodin, presented to ER with chief complaint of increasing shortness of breath especially during exertion, nonproductive cough, and one episode of chest tightness on Friday, with normal episodes ever since. Patient stated that she got a cold on Friday, was alternating feeling of hot/ cold, but she never got a temperature taken, and endorsed sore throat/ nonproductive cough. Patient had a hard time bringing up her sputum, and endorsed chest pain from coughing, however self resolved when not coughing. She said the chest pain was not reproducible during exertion, and no chest pain since Friday. Patient's daughter stated that patient walk to the bathroom is now prior to our interaction, and felt dizzy. At baseline patient could ambulate without assistance. On admission, Vitals: Stable saturating 92% on room air -CBC: WBC 9.6, H/H 15.0/39.1, PLT 357, -BMP: K3.3, CR 1.0, alk phos 137, -Misc: -CXR: Bibasilar airspace opacities. Aspiration is not excluded. -EKG: Sinus rhythm with diffuse ST depressions. Dr. Guerrero where it, with consult. -Interventions in ER: Ceftriaxone/azithromycin 1, Atrovent/Proventil Assessment: Patient's clinical picture with chest discomfort associated with coughing, however self resolving, may represented more of musculoskeletal chest pain, however pneumonia cannot be ruled out as well based on her chest x-ray. However , cardiac workup would still be needed to rule out any possible acute coronary syndrome/CHF, etc. Problem list #COPD #EKG change, ACS pending rule out #Hypokalemia, resolved #hypothyroidism #history of depression Plan DVT prophylaxis Heparin + ALPS Heart healthy Diet Full Code Problem List: 1. Hyperlipidemia 2. Abnormal EKG Pain Ratin Pain Location: see AP Pain Goal: Remain pain free Pain Plan: see AP Tomorrow's Labs & Rationales: CBC Sabas ANGELES,Dick 10/17/17 1257: Attending MD Review Statement Attending Statement Attending MD Statement: examined this patient, discuss w/resident/PA/BUSINESS SERVICES VICE PRESIDENT, agreed w/resident/PA/BUSINESS SERVICES VICE PRESIDENT, reviewed EMR data (avail) Attending Assessment/Plan: Patient seen and examined. Plan of care discussed with the medical team and the patient. Available lab work and radiology test reports were reviewed. Patient appears comfortable. She is walking in her room. She is currently on 2 L of oxygen with 87% saturation. She is afebrile with a other vital signs being stable. Chest exam shows a scattered crepitations mostly in the lower zones. No wheezing is heard. Patient appears comfortable without any respiratory distress. Abdomen soft nontender. Neuro exam is nonfocal. EKG was reviewed and shows diffuse ST depression especially in inferior leads. We have no old EKGs in this hospital. Patient probably had a stress test in the remote past which came out negative. Her troponins have been negative. Labs otherwise within normal limits. Chest x-ray was reviewed and shows lower zone haziness which could be indicative of interstitial lung disease given history of smoking. Patient was counseled to quit smoking. Plans to continue Solu-Medrol and azithromycin, TRC nebulizer and oxygen Increase ambulation Wait for echocardiogram Patient this time does not desire nicotine patch No need to check labs tomorrow
[2017-10-17 08:06] LABS: ABSOLUTE BASOPHIL COUNT 0 /CUMM (0.0-0.2); ABSOLUTE EOSINOPHIL COUNT 0 /CUMM (0.0-0.7); ABSOLUTE GRANULOCYTE CT 8.8 /CUMM (1.4-6.5); ABSOLUTE LYMPH COUNT 1.3 /CUMM (1.2-3.4); ABSOLUTE MONOCYTE COUNT 0.3 /CUMM (0.10-0.60); BASOPHIL % 0.2 % (0.0-2.0); EOSINOPHIL % 0 % (0-5); GRANULOCYTE % 84.8 % (42.2-75.2); HEMATOCRIT 39.5 % (37-47); MEAN CORPUSCULAR HGB 30.8 PG (27.0-31.0); MEAN CORPUSCULAR HGB CONC 33.7 G/DL (33.0-37.0); MEAN CORPUSCULAR VOLUME 91.4 FL (81.0-99.0); MEAN PLATELET VOLUME 7.7 FL (7.4-10.4); PLATELET COUNT 375 /CUMM (130-400); RBC DISTRIBUTION WIDTH 13.6 % (11.5-14.5); RED BLOOD CELL CT 4.32 /CUMM (4.20-5.40); WHITE BLOOD CELL COUNT 10.4 /CUMM (4.8-10.8)
--- NOTE | 2017-10-17 10:42 | PN- Cardiology ---
Subjective Subjective: Fariba is feeling much better today. Her breathing is easier and she is less tight. She's had no chest pain. She's had no arrhythmias. Multiple EKGs have been done which have been unchanged from her initial EKG. Enzymes are negative Objective Vital Signs and I&Os Vital Signs Date Time Temp Pulse Resp B/P B/P Pulse O2 O2 Flow FiO2 Mean Ox Delivery Rate 10/17 0837 Nasal 2.0L Cannula 10/17 06 99.0 93 22 148/88 87 Room Air 10/16 2200 99.2 77 22 142/80 10/16 2039 Room Air 10/16 1933 98.3 84 20 142/68 92 Room Air 10/16 1757 74 18 133/64 93 Room Air 10/16 1500 98.6 80 18 124/66 93 Room Air 10/16 1339 92 10/16 1258 98.7 84 20 124/78 92 Room Air Intake & Output 10/17 1600 10/17 0800 10/17 0000 10/16 1600 10/16 0800 10/16 0000 Intake Total 0 Output Total Balance 0 Intake, Oral 0 Patient 143 lb 135 lb Weight Weight Bed scale Estimated Measurement Method Physical Exam: She is in no distress HEENT exam is normal Chest reveals a few rhonchi and otherwise definitely improved Heart regular rhythm no murmurs Current Medications: Current Medications Sig/Rosaura Start time Last Medication Dose Route Stop Time Status Admin Acetaminophen 650 MG Q8P PRN 10/16 2115 AC PO Albuterol Sulfate 3 ML BID 10/17 1000 AC 10/17 INH 0844 Albuterol Sulfate 3 ML Q4P PRN 10/16 1900 AC INH Albuterol Sulfate 3 ML ONCE ONE 10/16 1330 DC 10/16 INH 10/16 1331 1339 Aspirin 81 MG DAILY 10/17 1000 AC 10/17 PO 0926 Aspirin 0 .STK-MED ONE 10/16 1757 DC PO Aspirin 325 MG ONCE ONE 10/16 1730 DC 10/16 PO 10/16 1731 1757 Atorvastatin Calcium 20 MG 1700 10/16 1845 AC 10/16 PO 2212 Azithromycin 500 MG 1500 10/17 1500 AC Dextrose/Water 250 ML IV Azithromycin 500 MG ONCE ONE 10/16 1445 DC 10/16 Dextrose/Water 250 ML IV 10/16 1544 1507 Ceftriaxone Sodium 1,000 MG 1500 10/17 1500 CAN IV Ceftriaxone Sodium 0 .STK-MED ONE 10/16 1503 DC .ROUTE Ceftriaxone Sodium 1,000 MG ONCE ONE 10/16 1445 DC 10/16 IV 10/16 1446 1507 Guaifenesin 600 MG Q12 10/17 1000 AC 10/17 PO 0927 Heparin Sodium 5,000 UNIT Q8 10/16 2200 AC 10/17 (Porcine) SC 0535 Hydrocodone Bitart/ 1 TAB Q8P PRN 10/16 211 AC Acetaminophen PO Ipratropium [place] 2.5 ML BID 10/17 1000 AC 10/17 INH 0844 Ipratropium [place] 2.5 ML ONCE ONE 10/16 1330 DC 10/16 INH 10/16 1331 1339 Levothyroxine Sodium 0.1 MG DAILY AC 10/17 0700 AC 10/17 PO 0535 Methylprednisolone 40 MG Q8 10/17 0600 AC 10/17 IV 0535 Methylprednisolone 40 MG Q8 10/16 2200 DC IV Methylprednisolone 0 .STK-MED ONE 10/16 1919 DC .ROUTE Methylprednisolone 125 MG ONCE ONE 10/16 1830 DC 10/16 IV 10/16 1831 1933 Mirtazapine 15 MG QPM 10/16 2200 AC 10/16 PO 2333 Nicotine 14 MG ONE TIME ONE 10/17 0430 DC TOP 10/17 0431 Potassium Chloride 0 .STK-MED ONE 10/16 1757 DC PO Potassium Chloride 40 MEQ ONCE ONE 10/16 1730 DC 10/16 PO 10/16 1731 1757 Tramadol HCl 50 MG Q8P PRN 10/16 211 AC 10/17 PO 0929 Results Last 48 Hrs of Labs/Mics: Laboratory Tests 10/17/17629: Troponin I Cancelled 10/17/17629: Anion Gap 18 H, Estimated GFR > 60, BUN/Creatinine Ratio 17.1, Troponin I < 0.01, CBC w Diff MAN DIFF ORDERED, RBC 4.32, MCV 91.4, MCH 30.8, MCHC 33.7, RDW 13.6, MPV 7.7, Gran % 84.8 H, Lymphocytes % 12.5 L, Monocytes % 2.5, Eosinophils % 0, Basophils % 0.2, Absolute Granulocytes 8.8 H, Segmented Neutrophils 72, Band Neutrophils 13 H, Absolute Lymphocytes 1.3, Lymphocytes 10 L, Monocytes 2, Absolute Monocytes 0.3, Absolute Eosinophils 0, Absolute Basophils 0, Metamyelocytes 1, Myelocytes 2 H, Platelet Estimate ADEQUATE, Normocytic RBCs VERIFIED, Normochromic RBCs VERIFIED 10/16/172054: Troponin I < 0.01 10/16/17 1625: Urine Color YEL, Urine Clarity CLEAR, Urine pH 6.0, Ur Specific [place] 1.015, Urine Protein TRACE H, Urine Ketones NEG, Urine Nitrite NEG, Urine Bilirubin NEG, Urine Urobilinogen 0.2, Ur Leukocyte Esterase NEG, Ur Microscopic SEDIMENT EXAMINED, Urine RBC 1-3, Urine WBC RARE, Ur Epithelial Cells FEW, Urine Bacteria RARE H, Urine Mucus RARE, Urine Hemoglobin SMALL H, Urine Glucose NEG 10/16/17 1335: Anion Gap 15, Estimated GFR 56 L, BUN/Creatinine Ratio 15.0, Glucose 136 H, Calcium 9.9, Total Bilirubin 0.6, AST 27, ALT 30, Alkaline Phosphatase 137 H, Troponin I < 0.01, Total Protein 7.1, Albumin 3.7, Globulin 3.4, Albumin/ Globulin Ratio 1.1, PT 12.5, INR 1.15, APTT 30, D-Dimer High Sensitivty 238, CBC w Diff NO MAN DIFF REQ, RBC 4.27, MCV 91.7, MCH 30.4, MCHC 33.1, RDW 13.5, MPV 7.3 L, Gran % 64.9, Lymphocytes % 23.6, Monocytes % 10.8 H, Eosinophils % 0.5, Basophils % 0.2, Absolute Granulocytes 7.5 H, Absolute Lymphocytes 2.7, Absolute Monocytes 1.3 H, Absolute Eosinophils 0.1, Absolute Basophils 0 Microbiology 10/16 2249 NASOPHARYN: Influenza Virus A & B Rapid Smear - COMP Recent Imaging Studies: CONCLUSIONS Normal left ventricular size, wall thickness and systolic function with no obvious regional wall motion abnormalities. The ejection fraction is visually estimated at >65 %. The left atrium is normal in size. No significant valve abnormalities. No valvular regurgitation. Unable to estimate the right ventricular systolic pressure. The aortic arch and great vessels are not well seen. Lokesh Guerrero M.D. (Electronically Signed) Final Date: 18 October 2017 15:22 Assessment/Plan Assessment/Plan Fariba is improved with regards to her acute bronchitis. From a cardiac standpoint she has a nonspecifically abnormal EKG but no evidence of acute ischemia. Her echocardiogram will be helpful. I think at this point she can be removed from telemetry monitoring. At some point she should have a stress test but this can be done as an outpatient after she is fully recovered from her respiratory illness. Continue telemetry? No
[2017-10-17 14:15] VITALS: BP 132/80
--- NOTE | 2017-10-17 14:59 | Patient Discharge Instructions ---
Discharge Instructions General Discharge Information Special Instructions: - Please follow up with your sales intern Dr. Guerrero within 1-2 weeks of discharge for outpatient stress test. - Please follow up with your primary care physician within 1-2 weeks of discharge. Inform your primary care physician of this admission to [facility]. - Continue your current medications per discharge instructions. - Please watch for these problems: Fever, Chills, Nausea, Vomiting, Shortness of Breath, Productive Cough, Chest Pain/Discomfort, Abdominal Pain, Active Bleeding or Bloody urine/stool. Diet Continue normal diet: Yes Activity Full Activity/No Limits: Yes Acute Coronary Syndrome Inclusion Criteria At DC or during hospital stay patient has or had the following: ACS DIAGNOSIS No Discharge Core Measures Meds if any: Prescribed or Continued at Discharge Meds if any: NOT Prescribed or Continued at Discharge Congestive Heart Failure Inclusion Criteria At [place] or during hospital stay patient has or had the following: CHF DIAGNOSIS No Discharge Core Measures Meds if any: Prescribed or Continued at Discharge Meds if any: NOT Prescribed or Continued at Discharge Cerebrovascular accident Inclusion Criteria At DC or during hospital stay patient has or had the following: CVA/TIA Diagnosis No Discharge Core Measures Meds if any: Prescribed or Continued at Discharge Meds if any: NOT Prescribed or Continued at Discharge Venous thromboembolism Inclusion Criteria VTE Diagnosis No VTE Type NONE VTE Confirmed by (Test) NONE Discharge Core Measures - Per Current guidelines, there needs to be overlap - treatment for the first 5 days of Warfarin therapy. - If discharged on Warfarin prior to 5 days of - overlap therapy, the patient will need to be - assessed for post discharge needs including - *Post discharge parental anticoagulation - *Warfarin and/or parental anticoagulation education - *Follow up date to check INR post discharge At least 5 days overlap therapy as Inpatient No Meds if any: Prescribed or Continued at Discharge Note: Overlap Therapy is Warfarin and Anticoagulant Meds if any: NOT Prescribed or Continued at Discharge
--- NOTE | 2017-10-17 16:01 | Discharge Summary ---
Visit Information Visit Dates Admission Date: 10/16/17 Discharge Date: 10/20/2017 Hospital Course Course Attending Physician: Sabas ANGELES,Dick Primary Care Physician: Candelaria ANGELES,Raghavendra Tang III Hospital Course: Ms. Lopez is a 66-year-old female with PMH of dyslipidemia, hypothyroidism, anxiety on rameron, degenerative disc disease w/ pinched nerve on vicodin, presented to ER with chief complaint of increasing shortness of breath especially during exertion, nonproductive cough, and one episode of chest tightness on Friday, with normal episodes ever since. Patient stated that she got a cold on Friday, was alternating feeling of hot/ cold, but she never got a temperature taken, and endorsed sore throat/ nonproductive cough. Patient had a hard time bringing up her sputum, and endorsed chest pain from coughing, however self resolved when not coughing. She said the chest pain was not reproducible during exertion, and no chest pain since Friday. Patient's daughter stated that patient walk to the bathroom is now prior to our interaction, and felt dizzy. At baseline patient could ambulate without assistance. On admission, Vitals: Stable saturating 92% on room air -CBC: WBC 9.6, H/H 15.0/39.1, PLT 357, -BMP: K3.3, CR 1.0, alk phos 137, -CXR: Bibasilar airspace opacities. Aspiration is not excluded. -EKG: Sinus rhythm with diffuse ST depressions. -Interventions in ER: Ceftriaxone/azithromycin 1, Atrovent/Proventil Assessment: Patient's clinical picture with chest discomfort associated with coughing, however self resolving, may represented more of musculoskeletal chest pain, however pneumonia cannot be ruled out as well based on her chest x-ray. However , cardiac workup would still be needed to rule out any possible acute coronary syndrome/CHF, etc. Problem list #COPD/Bronchitis #EKG change w/ multiple leads ST depression #Hypokalemia, resolved #hypothyroidism #history of depression Plan Patient, patient was provided with supplemental O2 to keep oxygen saturation above 92%, TRC/nebulizer, started IV Solu-Medrol 40 mg and then later tapered to oral prednisone prednisone, along with azithromycin treatment for a total of 5 days for possible orchitis and/or undiagnosed COPD/emphysema given patient's past medical history of smoking. Patient was also given Robitussin with codeine for cough. Patient was continue home medications including Remeron, Synthroid, aspirin 81, Lipitor. Cardiology was consulted that recommended no anticoagulate him for now as patient's current EKG change with multiple lead depression could be similar to what had happened to her 70 years ago while she has similar EKG change, with outpatient stress test returned normal. Patient will still need a cardiac outpatient stress test after this hospital stay. Echocardiogram during this hospital stay revealed grossly normal heart function with ejection fraction greater than 65%. Patient was advised to follow up with golf ball winder, and also outpatient pulmonary function test. DVT prophylaxis Heparin + ALPS Heart healthy Diet Full Code Allergies: Coded Allergies: No Known Allergies (10/16/17) Pertinent Lab Results: SERVICE DATE: 10/17/17-1199 EXAM TYPE: CARD - ECHOCARDIOGRAM CONCLUSIONS Normal left ventricular size, wall thickness and systolic function with no obvious regional wall motion abnormalities. The ejection fraction is visually estimated at >65 %. The left atrium is normal in size. No significant valve abnormalities. No valvular regurgitation. Unable to estimate the right ventricular systolic pressure. The aortic arch and great vessels are not well seen. Lokesh Guerrero M.D. (Electronically Signed) SERVICE DATE: 10/16/17-132 EXAM TYPE: RAD - XRY-PORTABLE CHEST XRAY IMPRESSION: Bibasilar airspace opacities. Aspiration is not excluded. Disposition Summary Disposition Principal Diagnosis: #COPD/Bronchitis #EKG change w/ multiple leads ST depression #Hypokalemia, resolved #hypothyroidism #history of depression Additional Diagnosis: As above Discharge Disposition: home or self care Discharge Instructions General Discharge Information Code Status: Full Code Patient's Diet: Heart Healthy Patient's Activity: Tolerated Follow-Up Instructions/Appts: - Please follow up with your golf ball winder Dr. Guerrero within 1-2 weeks of discharge for outpatient stress test. - Please follow up with your primary care physician within 1-2 weeks of discharge. Inform your primary care physician of this admission to [facility]. - Continue your current medications per discharge instructions. - Please watch for these problems: Fever, Chills, Nausea, Vomiting, Shortness of Breath, Productive Cough, Chest Pain/Discomfort, Abdominal Pain, Active Bleeding or Bloody urine/stool. Medications at Discharge Discharge Medications: Continue taking these medications: Atorvastatin Calcium (Atorvastatin Calcium) 20 MG TABLET 1 Tablet ORAL DAILY Qty = 90 Comments: Last Taken: 10/19/17 Time: 16:00 PM Mirtazapine (Mirtazapine) 15 MG TABLET 1 Tablet ORAL Every night Qty = 30 Comments: Last Taken: 10/19/17 Time: 21:00 PM Levothyroxine Sodium (Levothyroxine Sodium) 100 MCG TABLET 1 Tablet ORAL DAILY BEFORE BREAKFAST Qty = 30 Comments: Last Taken: 10/20/17 Time: 06:00 AM Hydrocodone/Acetaminophen (Hydrocodon-Acetaminoph 7.5-325) 7.5 MG-325 MG TABLET 1 Tablet ORAL 4 times daily as needed Qty = 120 Comments: Last Taken: 10/20/17 Time: 0:600 AM Start taking the following new medications: Prednisone (Prednisone) 10 MG TABLET 1 Tablet ORAL DAILY Qty = 21 No Refills Instructions: . Comments: Last Taken: 10/20/17 Time: 08:35 AM 4/3:take 6 tablets daily 4/4:take 5 tablets daily 4/5:take 4 tablets daily 4/6:take 3 tablets daily 4/7:take 2 tablets daily 4/8:take 1 tablets daily 4/9:STOP Codeine Phosphate/Guaifenesi (Guaifenesin AC Cough Syrup) 10 MG-100 MG/5 ML LIQUID 10 Milliliters ORAL EVERY SIX HOURS NEEDED as needed for COUGH Qty = 1 No Refills Comments: Last Taken: 10/20/17 Time: 06:00 AM Albuterol Sulfate (Ventolin Hfa) 90 MCG HFA.AER.AD 2 Puff Inhale through mouth EVERY 4-6 HOURS NEEDED as needed for Bronchitis/COPD Qty = 1 No Refills Comments: NOT GIVEN IN HOSPITAL Copies To: Candelaria ANGELES,Raghavendra Tang III Attending MD Review Statement Documenting Attending: Marilynn ANGELES,Aurelia Other Findings: Patient needs to follow up wit PCP in few days of dishcarge. She is medically stable for dsicharge.
[2017-10-17 23:38] VITALS: BP 120/72
[2017-10-18 06:56] VITALS: BP 110/70
--- NOTE | 2017-10-18 11:12 | PN- Att Addend ---
Attending Addendum Attending Brief Note Attending MD Statement: examined this patient, discuss w/resident/PA/LEGAL PROJECT MANAGER, agreed w/resident/PA/LEGAL PROJECT MANAGER, reviewed EMR data (avail) Attending Assessment/Plan: Patient seen and examined. Plan of care discussed with the medical team and the patient. Available lab work and radiology test reports were reviewed. Patient appears comfortable. She is walking in her room. She is currently on 3 L of oxygen with 94% saturation. She is afebrile with a other vital signs being stable. Chest exam shows a scattered crepitations mostly in the lower zones. No wheezing is heard. Patient appears comfortable without any respiratory distress. Abdomen soft nontender. Neuro exam is nonfocal. Her troponins have been negative. Admission Chest x-ray was reviewed and shows lower zone haziness which could be indicative of interstitial lung disease given history of smoking. Patient was counseled to quit smoking. Assessment COPD exacerbation History of smoking EKG changes-nonspecific Plans continue Solu-Medrol and azithromycin, TRC nebulizer and oxygen; taper oxygen as tolerated Will plan to switch to oral prednisone and azithromycin tomorrow Increase ambulation Wait for echocardiogram Patient does not desire nicotine patch No need to check labs tomorrow Current Medications Sig/Rosaura Start time Last Medication Dose Route Stop Time Status Admin Acetaminophen 650 MG .STK-MED ONE 10/17 1543 DC PO 10/17 1544 Acetaminophen 650 MG Q8P PRN 10/16 2115 AC 10/17 PO 1544 Albuterol Sulfate 3 ML BID 10/17 1000 AC 10/18 INH 0832 Albuterol Sulfate 3 ML Q4P PRN 10/16 1900 AC INH Aspirin 81 MG DAILY 10/17 1000 AC 10/18 PO 0752 Atorvastatin Calcium 20 MG 1700 10/16 1845 AC 10/17 PO 1616 Azithromycin 500 MG 1500 10/17 1500 AC 10/17 Dextrose/Water 250 ML IV 1745 Benzocaine/Menthol 1 EZEKIEL Q6P PRN 10/18 0100 AC PO Benzonatate 100 MG TID 10/17 2300 AC 10/18 PO 10/20 2259 0753 Guaifenesin 600 MG Q12 10/17 1000 AC 10/18 PO 0752 Heparin Sodium 5,000 UNIT Q8 10/16 2200 AC 10/18 (Porcine) SC 0645 Hydrocodone Bitart/ 1 TAB Q8P PRN 10/16 2115 AC 10/18 Acetaminophen PO 0649 Ipratropium [place] 2.5 ML BID 10/17 1000 AC 10/18 INH 0832 Levothyroxine Sodium 0.1 MG DAILY AC 10/17 0700 AC 10/18 PO 0645 Methylprednisolone 40 MG Q12 10/18 1000 AC 10/18 IV 0752 Methylprednisolone 40 MG Q8 10/17 0600 DC 10/17 IV 10/17 2199 215 Mirtazapine 15 MG QPM 10/16 2199 AC 10/17 PO 2152 Patient Medication 1 ED ONE ONE 10/17 1230 DC Teaching ED 10/17 1231 Tramadol HCl 50 MG Q8P PRN 10/16 2114 AC 10/17 PO 1544 Laboratory Tests 10/17/17629: Troponin I Cancelled 10/17/17629: Anion Gap 18 H, Estimated GFR > 60, BUN/Creatinine Ratio 17.1, Troponin I < 0.01, CBC w Diff MAN DIFF ORDERED, RBC 4.32, MCV 91.4, MCH 30.8, MCHC 33.7, RDW 13.6, MPV 7.7, Gran % 84.8 H, Lymphocytes % 12.5 L, Monocytes % 2.5, Eosinophils % 0, Basophils % 0.2, Absolute Granulocytes 8.8 H, Segmented Neutrophils 72, Band Neutrophils 13 H, Absolute Lymphocytes 1.3, Lymphocytes 10 L, Monocytes 2, Absolute Monocytes 0.3, Absolute Eosinophils 0, Absolute Basophils 0, Metamyelocytes 1, Myelocytes 2 H, Platelet Estimate ADEQUATE, Normocytic RBCs VERIFIED, Normochromic RBCs VERIFIED 10/16/172054: Troponin I < 0.01 10/16/17 1625: Urine Color YEL, Urine Clarity CLEAR, Urine pH 6.0, Ur Specific [place] 1.015, Urine Protein TRACE H, Urine Ketones NEG, Urine Nitrite NEG, Urine Bilirubin NEG, Urine Urobilinogen 0.2, Ur Leukocyte Esterase NEG, Ur Microscopic SEDIMENT EXAMINED, Urine RBC 1-3, Urine WBC RARE, Ur Epithelial Cells FEW, Urine Bacteria RARE H, Urine Mucus RARE, Urine Hemoglobin SMALL H, Urine Glucose NEG 10/16/17 1335: Anion Gap 15, Estimated GFR 56 L, BUN/Creatinine Ratio 15.0, Glucose 136 H, Calcium 9.9, Total Bilirubin 0.6, AST 27, ALT 30, Alkaline Phosphatase 137 H, Troponin I < 0.01, Total Protein 7.1, Albumin 3.7, Globulin 3.4, Albumin/ Globulin Ratio 1.1, PT 12.5, INR 1.15, APTT 30, D-Dimer High Sensitivty 238, CBC w Diff NO MAN DIFF REQ, RBC 4.27, MCV 91.7, MCH 30.4, MCHC 33.1, RDW 13.5, MPV 7.3 L, Gran % 64.9, Lymphocytes % 23.6, Monocytes % 10.8 H, Eosinophils % 0.5, Basophils % 0.2, Absolute Granulocytes 7.5 H, Absolute Lymphocytes 2.7, Absolute Monocytes 1.3 H, Absolute Eosinophils 0.1, Absolute Basophils 0 Microbiology 10/16 2250 NASOPHARYN: Influenza Virus A & B Rapid Smear - COMP 10/16 1723 LOWER RESP: Respiratory Culture - CAN Cancelled: SPECIMEN NOT RECEIVED IN LABORATORY 10/16 172 LOWER RESP: Gram Stain - CAN Cancelled: SPECIMEN NOT RECEIVED IN LABORATORY 10/16 1625 URINE ROUT: Legionella Antigen - COMP 10/16 162 URINE ROUT: Streptococcus pneumoniae Antigen (M - COMP 10/16 1500 BLOOD: Blood Culture - RES 10/16 1450 BLOOD: Blood Culture - RES Vital Signs Date Time Temp Pulse Resp B/P B/P Pulse O2 O2 Flow FiO2 Mean Ox Delivery Rate 10/18 0858 94 Nasal 3.0L Cannula 10/18 0656 98.0 58 20 110/70 93 Nasal Cannula 10/18 0000 95 Nasal 3.0L Cannula 10/17 2338 98.1 58 20 120/72 94 Nasal Cannula 10/17 2035 86 Room Air Room Air 10/17 1415 98.7 67 20 132/80 92 Nasal Cannula Intake & Output 10/18 1600 10/18 0800 10/18 0000 Intake Total 600 600 Output Total Balance 600 600 Intake, Oral 600 600 Patient 141 lb Weight Weight Bed scale Measurement Method
--- NOTE | 2017-10-18 12:15 | PN- Housestaff ---
Subjective Follow-up For: #COPD #EKG changes #hypothyroidism #history of depression Tele-Events Since Last Visit: SB 46-60 PVC Subjective: No acute events overnight. No sob, cp or weakness. Review of Systems Constitutional: Reports: see HPI. Objective Last 24 Hrs of Vital Signs/I&O Vital Signs Date Time Temp Pulse Resp B/P B/P Pulse O2 O2 Flow FiO2 Mean Ox Delivery Rate 10/18 2149 97 Room Air Room Air 10/18 2045 97.7 57 22 120/60 97 Room Air 10/18 1600 Nasal 3.0L Cannula 10/18 1501 98.4 65 20 122/70 94 Nasal 3.0L Cannula 10/18 0858 94 Nasal 3.0L Cannula 10/18 0656 98.0 58 20 110/70 93 Nasal Cannula Intake & Output 10/19 0800 10/19 0000 10/18 1600 Intake Total 650 420 Output Total Balance 650 420 Intake, IV 20 Intake, Oral 650 400 Patient 147 lb Weight Weight Bed scale Measurement Method Physical Exam General Appearance: Alert, Oriented X3, Cooperative Cardiovascular: Regular Rate, Normal S1, Normal S2 Lungs: RLB crackles Abdomen: Normal Bowel Sounds, Soft, No Tenderness Extremities: 2+ radial pulses Current Medications: Current Medications Sig/Rosaura Start time Last Medication Dose Route Stop Time Status Admin Acetaminophen 650 MG Q8P PRN 10/16 2115 AC 10/17 PO 1544 Albuterol Sulfate 3 ML BID 10/17 1000 AC 10/18 INH 2146 Albuterol Sulfate 3 ML Q4P PRN 10/16 1900 AC INH Aspirin 81 MG DAILY 10/17 1000 AC 10/18 PO 0752 Atorvastatin Calcium 20 MG 1700 10/16 1845 AC 10/18 PO 1550 Azithromycin 500 MG 1500 10/17 1500 AC 10/18 Dextrose/Water 250 ML IV 1800 Benzocaine/Menthol 1 EZEKIEL Q6P PRN 10/18 0100 AC 10/18 PO 1547 Benzonatate 100 MG TID 10/17 2300 AC 10/18 PO 10/20 2259 2209 Guaifenesin 600 MG Q12 10/17 1000 AC 10/18 PO 2209 Guaifenesin/Codeine 10 ML Q6P PRN 10/18 1545 AC 10/18 Phosphate PO 2209 Heparin Sodium 5,000 UNIT Q8 10/16 2200 AC 10/18 (Porcine) SC 2209 Hydrocodone Bitart/ 1 TAB Q8P PRN 10/16 2114 AC 10/19 Acetaminophen PO 0008 Ipratropium [place] 2.5 ML BID 10/17 1000 AC 10/18 INH 2146 Levothyroxine Sodium 0.1 MG DAILY AC 10/17 0700 AC 10/18 PO 0645 Methylprednisolone 40 MG Q12 10/18 1000 AC 10/18 IV 2210 Mirtazapine 15 MG QPM 10/16 2199 AC 10/18 PO 2209 Tramadol HCl 50 MG Q8P PRN 10/16 2114 AC 10/17 PO 1544 Assessment/Plan Assessment: Ms. Lopez is a 66-year-old female with PMH of dyslipidemia, hypothyroidism, anxiety on rameron, degenerative disc disease w/ pinched nerve on vicodin, presented to ER with chief complaint of increasing shortness of breath especially during exertion, nonproductive cough, and one episode of chest tightness on Friday, with normal episodes ever since. Patient stated that she got a cold on Friday, was alternating feeling of hot/ cold, but she never got a temperature taken, and endorsed sore throat/ nonproductive cough. Patient had a hard time bringing up her sputum, and endorsed chest pain from coughing, however self resolved when not coughing. She said the chest pain was not reproducible during exertion, and no chest pain since Friday. Patient's daughter stated that patient walk to the bathroom is now prior to our interaction, and felt dizzy. At baseline patient could ambulate without assistance. On admission, Vitals: Stable saturating 92% on room air -CBC: WBC 9.6, H/H 15.0/39.1, PLT 357, -BMP: K3.3, CR 1.0, alk phos 137, -Misc: -CXR: Bibasilar airspace opacities. Aspiration is not excluded. -EKG: Sinus rhythm with diffuse ST depressions. -Interventions in ER: Ceftriaxone/azithromycin 1, Atrovent/Proventil Assessment: Patient's clinical picture with chest discomfort associated with coughing, however self resolving, may represented more of musculoskeletal chest pain, however pneumonia cannot be ruled out as well based on her chest x-ray. However , cardiac workup would still be needed to rule out any possible acute coronary syndrome/CHF, etc. Problem list #COPD #EKG change, ACS pending rule out #Hypokalemia, resolved #hypothyroidism #history of depression Plan -added robitussin with coderin prn cough DVT prophylaxis Heparin + ALPS Heart healthy Diet Full Code Problem List: 1. Pneumonia 2. Abnormal EKG Pain Ratin Pain Location: none Pain Goal: Pain 4 or less Pain Plan: pathway Tomorrow's Labs & Rationales: cbc bep
[2017-10-18 15:01] VITALS: BP 122/70
--- NOTE | 2017-10-18 15:23 | ECHOCARDIOGRAM REPORT ---
KEVYN GARCIA Age: 66 : 1950 Gender: F Exam Date: 10/17/2017 14:15 Exam Location: [address] Ht (in): 63 Wt (lb): 142 BSA: 1.70 BP: 148 / 88 Ordering Physician: Toma Muniz MD Referring Physician: Toma Muniz MD Technologist: Silvestre Richey [facility] Room Number: [id number] Indications: ARRHYTHMIAS Rhythm: Sinus Technical Quality: poor FINDINGS Left Ventricle Normal left ventricular size, wall thickness and systolic function with no obvious regional wall motion abnormalities. Normal left ventricular diastolic filling pattern for age. The ejection fraction is visually estimated at >65 %. Right Ventricle The right ventricle is normal in size and function. Right Atrium The right atrium is normal in size. Left Atrium The left atrium is normal in size. The interatrial septum is intact. Mitral Valve The mitral valve is normal in structure and function. There is no mitral regurgitation. Aortic Valve Structurally normal aortic valve without significant sclerosis or stenosis. There is no aortic regurgitation. Tricuspid Valve The tricuspid valve is normal in structure and function. There is no tricuspid regurgitation. Unable to estimate the right ventricular systolic pressure. Pulmonic Valve Structurally normal pulmonic valve. There is no pulmonic regurgitation. Pericardium Normal pericardium without effusion. No pleural effusion. Great Vessels Normal aortic root dimension. The aortic arch and great vessels are not well seen.. CONCLUSIONS Normal left ventricular size, wall thickness and systolic function with no obvious regional wall motion abnormalities. The ejection fraction is visually estimated at >65 %. The left atrium is normal in size. No significant valve abnormalities. No valvular regurgitation. Unable to estimate the right ventricular systolic pressure. The aortic arch and great vessels are not well seen. Lokesh Guerrero M.D. (Electronically Signed) Final Date: 18 October 2017 15:22 MEASUREMENTS (Male / Female) Normal Values 2D ECHO LV Diastolic Diameter PLAX 4.2 cm 4.2 - 5.9 / 3.9 - 5.3 cm LV Systolic Diameter PLAX 2.4 cm 2.1 - 4.0 cm LV Fractional Shortening PLAX 42.9 % 25 - 46 % LV Ejection Fraction 2D Teich 74.3 % IVS Diastolic Thickness 0.9 cm LVPW Diastolic Thickness 1.0 cm LV Relative Wall Thickness 0.5 LVOT Diameter 2.0 cm Aortic Root Diameter 2.6 cm LA Systolic Diameter LX 2.9 cm 3.0 - 4.0 / 2.7 - 3.8 cm LV Ejection Fraction MOD BP 75.9 % >= 55 % LV Cardiac Index MOD BP 2271.8 cm/minm LV Diastolic Length 4C 5.5 cm 6.9 - 10.3 cm LV Diastolic Area 4C 21.5 cm LV Diastolic Volume MOD 4C 68.0 cm LV Ejection Fraction MOD 4C 69.1 % LV Stroke Volume MOD 4C 47.0 cm LV Cardiac Index MOD 4C 2426.7 cm/minm LV Systolic Length 4C 4.6 cm LV Systolic Area 4C 10.5 cm LV Systolic Volume MOD 4C 21.0 cm LV Ejection Fraction MOD 2C 79.6 % LV Cardiac Index MOD 2C 2013.7 cm/minm LV Diastolic Volume 4C AL 71.1 cm 85 - 139 / 69 - 109 cm LV Systolic Volume 4C AL 20.4 cm LV Ejection Fraction 4C AL 71.3 % LV Stroke Volume 4C AL 50.6 cm LV Cardiac Index 4C AL 2614.4 cm/minm LV Ejection Fraction 2C AL 80.7 % LV Cardiac Index 2C AL 2074.3 cm/minm LA Volume 35.0 cm 18 - 58 / 22 - 52 cm Ascending Aorta Diameter 3.1 cm DOPPLER AV Peak Velocity 193.0 cm/s AV Peak Gradient 14.9 mmHg LVOT Peak Velocity 121.0 cm/s LVOT Peak Gradient 5.9 mmHg AV Area Cont Eq pk 2.0 cm
[2017-10-18 20:46] VITALS: BP 120/60
[2017-10-19 07:19] VITALS: BP 150/80
[2017-10-19 08:21] LABS: ABSOLUTE BASOPHIL COUNT 0 /CUMM (0.0-0.2); ABSOLUTE EOSINOPHIL COUNT 0 /CUMM (0.0-0.7); ABSOLUTE GRANULOCYTE CT 14.7 /CUMM (1.4-6.5); ABSOLUTE LYMPH COUNT 2.8 /CUMM (1.2-3.4); BASOPHIL % 0.2 % (0.0-2.0); EOSINOPHIL % 0 % (0-5); GRANULOCYTE % 79.2 % (42.2-75.2); HEMATOCRIT 36.8 % (37-47); MEAN CORPUSCULAR HGB 30.4 PG (27.0-31.0); MEAN CORPUSCULAR VOLUME 92.1 FL (81.0-99.0); MEAN PLATELET VOLUME 7.5 FL (7.4-10.4); PLATELET COUNT 410 /CUMM (130-400); RBC DISTRIBUTION WIDTH 14.3 % (11.5-14.5); RED BLOOD CELL CT 3.99 /CUMM (4.20-5.40)
[2017-10-19 09:17] LABS: WHITE BLOOD CELL COUNT 18.6 /CUMM (4.8-10.8)
--- NOTE | 2017-10-19 09:39 | PN- Housestaff ---
MunizToma 10/19/17 0938: Subjective Follow-up For: #COPD #EKG changes #hypothyroidism #history of depression Tele-Events Since Last Visit: SB/NSR 50s-70s Subjective: No overnight event. Patient was still on IV solumedrol but felt some improvement. She endorsed that she will quit smoking from now on for sure. Also stated that she had sputum but had difficulty bring it out. No other specific complaint. Review of Systems Constitutional: Reports: see HPI. Objective Last 24 Hrs of Vital Signs/I&O Vital Signs Date Time Temp Pulse Resp B/P B/P Pulse O2 O2 Flow FiO2 Mean Ox Delivery Rate 10/19 0826 94 Room Air 10/19 0800 95 Room Air 10/19 0719 98.0 67 20 150/80 94 Room Air 10/19 0000 97 Room Air 10/18 2149 97 Room Air Room Air 10/18 2046 97.7 57 22 120/60 97 Room Air 10/18 1600 Nasal 3.0L Cannula 10/18 1501 98.4 65 20 122/70 94 Nasal 3.0L Cannula Intake & Output 10/19 1600 10/19 0800 10/19 0000 Intake Total 250 650 Output Total Balance 250 650 Intake, Oral 250 650 Patient 66.706 kg Weight Weight Bed scale Measurement Method Physical Exam General Appearance: Alert, Oriented X3, Cooperative, No Acute Distress Cardiovascular: Regular Rate Lungs: Normal Air Movement, Expiratory wheezing on mid lung sections. Abdomen: Soft, No Tenderness Neurological: Normal Speech Extremities: No Edema, Normal Pulses Current Medications: Current Medications Sig/Rosaura Start time Last Medication Dose Route Stop Time Status Admin Acetaminophen 650 MG Q8P PRN 10/16 2115 AC 10/17 PO 1544 Albuterol Sulfate 3 ML BID 10/17 1000 AC 10/19 INH 0809 Albuterol Sulfate 3 ML Q4P PRN 10/16 1900 AC INH Aspirin 81 MG DAILY 10/17 1000 AC 10/19 PO 0827 Atorvastatin Calcium 20 MG 1700 10/16 1845 AC 10/18 PO 1550 Azithromycin 500 MG 1500 10/17 1500 AC 10/18 Dextrose/Water 250 ML IV 1800 Benzocaine/Menthol 1 EZEKIEL Q6P PRN 10/18 0100 AC 10/19 PO 0827 Benzonatate 100 MG TID 10/17 2300 AC 10/19 PO 10/20 2259 0827 Guaifenesin 600 MG Q12 10/17 1000 AC 10/19 PO 0827 Guaifenesin/Codeine 10 ML Q6P PRN 10/18 1545 AC 10/19 Phosphate PO 0636 Heparin Sodium 5,000 UNIT Q8 10/16 2200 AC 10/19 (Porcine) SC 0631 Hydrocodone Bitart/ 1 TAB Q8P PRN 10/16 211 AC 10/19 Acetaminophen PO 0827 Ipratropium [place] 2.5 ML BID 10/17 1000 AC 10/19 INH 0809 Levothyroxine Sodium 0.1 MG DAILY AC 10/17 0700 AC 10/19 PO 0632 Methylprednisolone 40 MG Q12 10/18 1000 AC 10/19 IV 0827 Mirtazapine 15 MG QPM 10/16 2199 AC 10/18 PO 220 Tramadol HCl 50 MG Q8P PRN 10/16 2114 AC 10/17 PO 1544 Last 24 Hrs of Lab/Jesus Alberto Results Last 24 Hrs of Labs/Mics: Laboratory Tests 10/19/1730: Anion Gap 13, Estimated GFR > 60, BUN/Creatinine Ratio 25.7 H, CBC w Diff MAN DIFF ORDERED, RBC 3.99 L, MCV 92.1, MCH 30.4, MCHC 33.0, RDW 14.3, MPV 7.5, Gran % 79.2 H, Lymphocytes % 15.1 L, Monocytes % 5.5, Eosinophils % 0, Basophils % 0.2, Absolute Granulocytes 14.7 H, Segmented Neutrophils Pending, Absolute Lymphocytes 2.8, Absolute Monocytes 1.0 H, Absolute Eosinophils 0, Absolute Basophils 0 Assessment/Plan Assessment: Ms. Lopez is a 66-year-old female with PMH of dyslipidemia, hypothyroidism, anxiety on rameron, degenerative disc disease w/ pinched nerve on vicodin, presented to ER with chief complaint of increasing shortness of breath especially during exertion, nonproductive cough, and one episode of chest tightness on Friday, with normal episodes ever since. Patient stated that she got a cold on Friday, was alternating feeling of hot/ cold, but she never got a temperature taken, and endorsed sore throat/ nonproductive cough. Patient had a hard time bringing up her sputum, and endorsed chest pain from coughing, however self resolved when not coughing. She said the chest pain was not reproducible during exertion, and no chest pain since Friday. Patient's daughter stated that patient walk to the bathroom is now prior to our interaction, and felt dizzy. At baseline patient could ambulate without assistance. On admission, Vitals: Stable saturating 92% on room air -CBC: WBC 9.6, H/H 15.0/39.1, PLT 357, -BMP: K3.3, CR 1.0, alk phos 137, -Misc: -CXR: Bibasilar airspace opacities. Aspiration is not excluded. -EKG: Sinus rhythm with diffuse ST depressions. -Interventions in ER: Ceftriaxone/azithromycin 1, Atrovent/Proventil Assessment: Patient's clinical picture with chest discomfort associated with coughing, however self resolving, may represented more of musculoskeletal chest pain, however pneumonia cannot be ruled out as well based on her chest x-ray. However , cardiac workup would still be needed to rule out any possible acute coronary syndrome/CHF, etc. Problem list #COPD #EKG change, ACS pending rule out #Hypokalemia, resolved #hypothyroidism #history of depression Plan -added robitussin with coderin prn cough DVT prophylaxis Heparin + ALPS Heart healthy Diet Full Code Problem List: 1. Hyperlipidemia 2. Abnormal EKG 3. COPD exacerbation Pain Ratin Pain Location: NA Pain Goal: Remain pain free Pain Plan: see AP Tomorrow's Labs & Rationales: DELORIS Dobbs MD,Amir 10/19/17 1100: Attending MD Review Statement Attending Statement Attending MD Statement: examined this patient, discuss w/resident/PA/WARP HAULER, agreed w/resident/PA/WARP HAULER, reviewed EMR data (avail), discussed with nursing Attending Assessment/Plan: Pt was seen and examined. Reports improvement in her breathing. Denies f/c. Agree with switching to PO abx and steriods rest of the plan as per resident's note
[2017-10-19 14:17] VITALS: BP 164/88
[2017-10-19 23:06] VITALS: BP 132/78
[2017-10-20 06:39] VITALS: BP 150/88
--- NOTE | 2017-10-20 07:17 | PN- Housestaff ---
Toma Muniz Bladimir Karson 10/20/17 0717: Subjective Follow-up For: #COPD #EKG changes #hypothyroidism #history of depression Tele-Events Since Last Visit: NSR Subjective: No overnight event. Andrea was still coughing and now on 3LNC. Would liek to know if she could go home today. Review of Systems Constitutional: Reports: see HPI. Objective Last 24 Hrs of Vital Signs/I&O Vital Signs Date Time Temp Pulse Resp B/P B/P Pulse O2 O2 Flow FiO2 Mean Ox Delivery Rate 10/20 0639 97.4 64 18 150/88 95 Room Air 10/19 2310 94 Room Air Room Air 10/19 2306 97.9 58 20 132/78 92 Nasal 3.0L Cannula 10/19 2104 Room Air 10/19 1600 95 Room Air 10/19 1417 98.1 61 20 164/88 91 Room Air 10/19 0826 94 Room Air Intake & Output 10/20 1600 10/20 0800 10/20 0000 Intake Total Output Total Balance Patient 67.132 kg Weight Physical Exam General Appearance: Alert, Oriented X3, Cooperative, Mild Distress Cardiovascular: Regular Rate Lungs: Clear to Auscultation, Normal Air Movement Abdomen: Soft, No Tenderness Neurological: Normal Speech Extremities: No Edema, Normal Pulses Current Medications: Current Medications Sig/Rosaura Start time Last Medication Dose Route Stop Time Status Admin Acetaminophen 650 MG Q8P PRN 10/16 2115 AC 10/17 PO 1544 Albuterol Sulfate 3 ML BID 10/17 1000 AC 10/19 INH 2138 Albuterol Sulfate 3 ML Q4P PRN 10/16 1900 AC INH Aspirin 81 MG DAILY 10/17 1000 AC 10/19 PO 0827 Atorvastatin Calcium 20 MG 1700 10/16 1845 AC 10/19 PO 1600 Azithromycin 500 MG 1800 10/19 1800 CAN Dextrose/Water 250 ML IV Azithromycin 250 MG DAILY 10/19 1300 AC 10/19 PO 1509 Azithromycin 500 MG 1500 10/17 1500 DC 10/18 Dextrose/Water 250 ML IV 1800 Benzocaine/Menthol 1 EZEKIEL Q6P PRN 10/18 0100 AC 10/19 PO 1559 Benzonatate 100 MG TID 10/17 2300 AC 10/19 PO 10/20 2259 2101 Guaifenesin 600 MG Q12 10/17 1000 AC 10/19 PO 2101 Guaifenesin/Codeine 10 ML Q6P PRN 10/18 1545 AC 10/20 Phosphate PO 0553 Heparin Sodium 5,000 UNIT Q8 10/160 AC 10/20 (Porcine) SC 0553 Hydrocodone Bitart/ 1 TAB Q8P PRN 10/16 2114 AC 10/20 Acetaminophen PO 0559 Ipratropium [place] 2.5 ML BID 10/17 1000 AC 10/19 INH 2138 Levothyroxine Sodium 0.1 MG DAILY AC 10/17 0700 AC 10/20 PO 0553 Methylprednisolone 40 MG Q12 10/18 1000 DC 10/19 IV 0827 Mirtazapine 15 MG QPM 10/16 220 AC 10/19 PO 2101 Prednisone 60 MG DAILY 10/20 1000 AC PO Tramadol HCl 50 MG Q8P PRN 10/16 2114 AC 10/17 PO 1544 Last 24 Hrs of Lab/Jesus Alberto Results Last 24 Hrs of Labs/Mics: Laboratory Tests 10/20/17 0650: CBC w Diff Pending, WBC Pending, RBC Pending, Hgb Pending, Hct Pending, MCV Pending, MCH Pending, MCHC Pending, RDW Pending, Plt Count Pending, MPV Pending, Gran % Pending, Lymphocytes % Pending, Monocytes % Pending, Eosinophils % Pending, Basophils % Pending, Absolute Granulocytes Pending, Absolute Lymphocytes Pending, Absolute Monocytes Pending, Absolute Eosinophils Pending, Absolute Basophils Pending Assessment/Plan Assessment: Ms. Lopez is a 66-year-old female with PMH of dyslipidemia, hypothyroidism, anxiety on rameron, degenerative disc disease w/ pinched nerve on vicodin, presented to ER with chief complaint of increasing shortness of breath especially during exertion, nonproductive cough, and one episode of chest tightness on Friday, with normal episodes ever since. Patient stated that she got a cold on Friday, was alternating feeling of hot/ cold, but she never got a temperature taken, and endorsed sore throat/ nonproductive cough. Patient had a hard time bringing up her sputum, and endorsed chest pain from coughing, however self resolved when not coughing. She said the chest pain was not reproducible during exertion, and no chest pain since Friday. Patient's daughter stated that patient walk to the bathroom is now prior to our interaction, and felt dizzy. At baseline patient could ambulate without assistance. On admission, Vitals: Stable saturating 92% on room air -CBC: WBC 9.6, H/H 15.0/39.1, PLT 357, -BMP: K3.3, CR 1.0, alk phos 137, -Misc: -CXR: Bibasilar airspace opacities. Aspiration is not excluded. -EKG: Sinus rhythm with diffuse ST depressions. -Interventions in ER: Ceftriaxone/azithromycin 1, Atrovent/Proventil Problem list #COPD #EKG change, ACS pending rule out #Hypokalemia, resolved #hypothyroidism #history of depression Plan -added robitussin with coderin prn cough DVT prophylaxis Heparin + ALPS Heart healthy Diet Full Code Problem List: 1. COPD exacerbation 2. Hyperlipidemia 3. Abnormal EKG Pain Ratin Pain Location: NA Pain Goal: Remain pain free Pain Plan: see AP Tomorrow's Labs & Rationales: CBC Aurelia Subramanian 10/20/17 1159: Attending MD Review Statement Attending Statement Attending MD Statement: examined this patient, discuss w/resident/PA/MACHINE PRECISION ETCHER, agreed w/resident/PA/MACHINE PRECISION ETCHER, discussed with family, reviewed EMR data (avail), discussed with nursing, discussed with case mgmt, reviewed images, amended to note Attending Assessment/Plan: Pt was seen and examined. Reports improvement in her breathing. Denies f/c. Continue with PO abx and steriods.
[2017-10-20 07:51] LABS: ABSOLUTE BASOPHIL COUNT 0.1 /CUMM (0.0-0.2); ABSOLUTE EOSINOPHIL COUNT 0.1 /CUMM (0.0-0.7); ABSOLUTE GRANULOCYTE CT 13.8 /CUMM (1.4-6.5); ABSOLUTE LYMPH COUNT 5.7 /CUMM (1.2-3.4); ABSOLUTE MONOCYTE COUNT 1.8 /CUMM (0.10-0.60); BASOPHIL % 0.3 % (0.0-2.0); EOSINOPHIL % 0.3 % (0-5); GRANULOCYTE % 64.6 % (42.2-75.2); HEMATOCRIT 37.1 % (37-47); MEAN CORPUSCULAR HGB 30.5 PG (27.0-31.0); MEAN CORPUSCULAR VOLUME 92.5 FL (81.0-99.0); MEAN PLATELET VOLUME 7.3 FL (7.4-10.4); PLATELET COUNT 448 /CUMM (130-400); RBC DISTRIBUTION WIDTH 14.3 % (11.5-14.5); RED BLOOD CELL CT 4.01 /CUMM (4.20-5.40); WHITE BLOOD CELL COUNT 21.3 /CUMM (4.8-10.8)
--- NOTE | 2017-10-20 10:07 | PN- Cardiology ---
Subjective Subjective: The patient is feeling better. She wants to be discharged. She is still coughing a little bit but states she has less wheezing. She is still on oxygen but saturating okay. She is still on the monitor with no arrhythmias. Her echocardiogram showed good left ventricular systolic function. She has 3 negative troponins Objective Vital Signs and I&Os Vital Signs Date Time Temp Pulse Resp B/P B/P Pulse O2 O2 Flow FiO2 Mean Ox Delivery Rate 10/20 0930 93 Nasal 3.0L Cannula 10/20 0639 97.4 64 18 150/88 95 Room Air 10/19 2310 94 Room Air Room Air 10/19 2306 97.9 58 20 132/78 92 Nasal 3.0L Cannula 10/19 2104 Room Air 10/19 1600 95 Room Air 10/19 1417 98.1 61 20 164/88 91 Room Air Intake & Output 10/20 1600 10/20 0800 10/20 0000 10/19 1600 10/19 0800 10/19 0000 Intake Total 500 250 650 Output Total Balance 500 250 650 Intake, Oral 500 250 650 Patient 148 lb 147 lb Weight Weight Bed scale Measurement Method Physical Exam: She is in no distress HEENT exam normal Chest reduced breath sounds, few rhonchi and very mild wheezes Heart regular rhythm, no murmurs Extremities good pulses no edema Current Medications: Current Medications Sig/Rosaura Start time Last Medication Dose Route Stop Time Status Admin Acetaminophen 650 MG Q8P PRN 10/16 2115 AC 10/17 PO 1544 Albuterol Sulfate 3 ML BID 10/17 1000 AC 10/20 INH 0932 Albuterol Sulfate 3 ML Q4P PRN 10/16 1900 AC INH Aspirin 81 MG DAILY 10/17 1000 AC 10/20 PO 0836 Atorvastatin Calcium 20 MG 1700 10/16 1845 AC 10/19 PO 1600 Azithromycin 500 MG 1800 10/19 1800 CAN Dextrose/Water 250 ML IV Azithromycin 250 MG DAILY 10/19 1300 AC 10/20 PO 0835 Benzocaine/Menthol 1 EZEKIEL Q6P PRN 10/18 0100 AC 10/20 PO 0836 Benzonatate 100 MG TID 10/17 2300 AC 10/20 PO 10/20 2259 0835 Guaifenesin 600 MG Q12 10/17 1000 AC 10/20 PO 0836 Guaifenesin/Codeine 10 ML Q6P PRN 03/31 1545 AC 10/20 Phosphate PO 0553 Heparin Sodium 5,000 UNIT Q8 10/16 2199 AC 10/20 (Porcine) SC 0553 Hydrocodone Bitart/ 1 TAB Q8P PRN 10/16 2114 AC 10/20 Acetaminophen PO 0559 Ipratropium [place] 2.5 ML BID 10/17 1000 AC 10/20 INH 0932 Levothyroxine Sodium 0.1 MG DAILY AC 10/17 0700 AC 10/20 PO 0553 Methylprednisolone 40 MG Q12 10/18 1000 DC 10/19 IV 0827 Mirtazapine 15 MG QPM 10/16 2199 AC 10/19 PO 2101 Prednisone 60 MG DAILY 10/20 1000 AC 10/20 PO 0835 Tramadol HCl 50 MG Q8P PRN 10/16 2114 AC 10/17 PO 1544 Results Last 48 Hrs of Labs/Mics: Laboratory Tests 10/20/17 0650: CBC w Diff MAN DIFF ORDERED, RBC 4.01 L, MCV 92.5, MCH 30.5, MCHC 33.0, RDW 14.3, MPV 7.3 L, Gran % 64.6, Lymphocytes % 26.6, Monocytes % 8.2, Eosinophils % 0.3, Basophils % 0.3, Absolute Granulocytes 13.8 H, Segmented Neutrophils 45, Band Neutrophils 12 H, Absolute Lymphocytes 5.7 H, Lymphocytes 25, Monocytes 8 , Absolute Monocytes 1.8 H, Absolute Eosinophils 0.1, Absolute Basophils 0.1, Metamyelocytes 6 H, Myelocytes 4 H, Nucleated RBCs 2 H, Platelet Estimate VERIFIED BY SMEAR, Anisocytosis 1+ 10/19/17 0630: Anion Gap 13, Estimated GFR > 60, BUN/Creatinine Ratio 25.7 H, CBC w Diff MAN DIFF ORDERED, RBC 3.99 L, MCV 92.1, MCH 30.4, MCHC 33.0, RDW 14.3, MPV 7.5, Gran % 79.2 H, Lymphocytes % 15.1 L, Monocytes % 5.5, Eosinophils % 0, Basophils % 0.2, Absolute Granulocytes 14.7 H, Segmented Neutrophils 64, Band Neutrophils 6 H, Absolute Lymphocytes 2.8, Lymphocytes 20 L, Monocytes 4, Absolute Monocytes 1.0 H, Absolute Eosinophils 0, Absolute Basophils 0, Metamyelocytes 5 H, Myelocytes 1 H, Platelet Estimate VERIFIED BY SMEAR, Polychromasia 1+ Assessment/Plan Assessment/Plan The patient is improved from a respiratory standpoint. Her cardiac workup was negative despite the abnormal electrocardiogram. She can be discontinued from telemetry monitoring. She can be discharged when stable from a respiratory standpoint. She should have a stress test as an outpatient when she is fully recovered from her respiratory illness. Continue telemetry? No
[2017-10-20] MEDS ORDERED: PREDNISONE10 M2 PO ×2 (11:01→11:18)
[2017-10-20] MEDS ORDERED: VENTOLIN HFA18 GM INH (11:18)
[2017-10-20] MEDS ORDERED: GUAIFENESIN AC473 M2 PO (11:37)
== END 2017-10-20 14:20 | DRG 192 ==
LOC: ERH 12:53 → ERHI 15:11 → 1NO 15:11 → ENRESERV 19:00 → ENTRNSPT 19:39 → EDTRNSPTSTS 19:44 → CMPTRNSPT 20:03 → 1NO 20:03 → ENPENDDIS 10-20 11:16 → ENTRNSPT 10-20 14:10 → EDTRNSPTSTS 10-20 14:15 → 1NO 10-20 14:20 → CMPTRNSPT 10-20 14:22
PROVIDERS: Emergency Medicine; Internal Medicine Endocrinology, Diabetes & Metabolism; Student in an Organized Health Care Education/Training Program
DX: J44.1 Chronic obstructive pulmonary disease with (acute) exacerbation (principal); E03.9 Hypothyroidism, unspecified; E78.5 Hyperlipidemia, unspecified; J20.9 Acute bronchitis, unspecified; J44.0 Chronic obstructive pulmonary disease with (acute) lower respiratory infection; F41.9 Anxiety disorder, unspecified; M47.9 Spondylosis, unspecified; F17.210 Nicotine dependence, cigarettes, uncomplicated; E87.6 Hypokalemia; R94.31 Abnormal electrocardiogram [ECG] [EKG]; F32.9 Major depressive disorder, single episode, unspecified
CPT/HCPCS: 1NSP; 36592; 71045; 81001; 82436; 87040; 87070; 87449; 87450; 87804; 87804-59; 93005; 93010; 93306; 96374; 96375; 99291; J0456; J0696; J1644; J2920; J2930; J3490; J7060